=== PATIENT | female | born 1980 | race African-American/Black ===

== ENCOUNTER 2022-10-31 21:42 | Inpatient (IN) | payer MEDICAID, MEDICARE ==
[~2022-10-31] VITALS: Ht 175.3 cm; Wt 85.3 kg
[~2022-10-31 21:42] MED LIST: CARI350T27 PO; LOPE2CAP PO; WARF4TAB72 PO
--- NOTE | 2022-10-31 21:55 | NUR ---
Patient arrived, bib ambulance. Not able to assess mentlastatus, no signs or respiratory distress. Patient sleeping and snoring. MD at bedside assessing pt. All safety precautions followed.
--- NOTE | 2022-10-31 21:55 | NUR ---
DANN MIDLINE IV ESTABLISHED BY MIDLINE RN
[2022-10-31] MEDS ORDERED: IV NS 0.9% 1,000 ML BAG IV ONE (22:00)
[2022-10-31] MEDS ORDERED: NALOXONE PREFILLED SYRINGE 2 MG/2 ML SYRINGE IV ONE (22:00)
--- NOTE | 2022-10-31 22:00 | NUR ---
Blood collected, sent to lab
[2022-10-31] MEDS ORDERED: NALOXONE PREFILLED SYRINGE 2 MG/2 ML SYRINGE ONE (22:16)
--- NOTE | 2022-10-31 22:30 | NUR ---
Wilson catheter in place 16fr.
--- NOTE | 2022-10-31 22:31 | NUR ---
Patietn awake, combative, confused. All safety precautions followed.
[2022-10-31 22:33] LABS: BASOPHILS % (AUTO) 0.4 % (0.0-2.0); EOSINOPHILS % (AUTO) 2.7 % (0.0-6.0); HEMATOCRIT 37 % (33-45); HEMOGLOBIN 11.5 g/dL (11.5-14.8); LYMPHOCYTES # (AUTO) 0.8 K/uL (0.8-4.8); LYMPHOCYTES % (AUTO) 17.6 % (20.0-44.0); MEAN CORPUSCULAR HGB CONC 31 g/dl (31.0-36.0); MEAN CORPUSCULAR VOLUME 85 fL (82-100); MONOCYTES # (AUTO) 0.5 K/uL (0.1-1.30); MONOCYTES % (AUTO) 10.2 % (2.0-12.0); NEUTROPHILS # (AUTO) 3.2 K/uL (1.8-8.9); NEUTROPHILS % (AUTO) 69.1 % (43.0-81.0); PLATELET COUNT (AUTO) 163 K/uL (150-450); RED BLOOD CELL COUNT(AUTO) 4.32 MIL/uL (4.0-5.2); WHITE BLOOD COUNT (AUTO) 4.6 K/uL (4.3-11.0)
--- NOTE | 2022-10-31 22:38 | NUR ---
Only NS 500 ml administered, per MDs request.
[2022-10-31 22:47] LABS: SERUM AMMONIA 12 umol/L (11-32)
[2022-10-31 22:51] LABS: CALCIUM, SERUM 9.2 mg/dL (8.5-10.1); CARBON DIOXIDE 30 mmol/L (21-32); CHLORIDE 95 mmol/L (98-107); CREATININE 5.1 mg/dL (0.6-1.3); GLUCOSE 333 mg/dL (74-106); POTASSIUM 4.4 mmol/L (3.5-5.1); SODIUM SERUM 136 mmol/L (136-145); UREA NITROGEN, BLOOD 25 mg/dL (7-18)
[2022-10-31 22:56] LABS: ALANINE AMINOTRANSFERASE 25 U/L (12-78); ALBUMIN 4.3 g/dL (3.4-5.0); ALCOHOL, BLOOD < 3 mg/dL (0-10); ALKALINE PHOSPHATASE 145 U/L (46-116); ASPARTATE AMINOTRANSFERASE 14 U/L (15-37); BILIRUBIN,DIRECT 0.1 mg/dL (0.0-0.2); BILIRUBIN,TOTAL 0.6 mg/dL (0.2-1.0); TOTAL PROTEIN, SERUM 8.5 g/dL (6.4-8.2)
[2022-10-31] MEDS ORDERED: ONDANSETRON HCL/PF 4 MG/2 ML VIAL ONE (23:19)
--- NOTE | 2022-10-31 23:20 | NUR ---
PT OBSERVED TO HAVE VOMITED X1
--- NOTE | 2022-10-31 23:25 | NUR ---
PT TAKEN TO CT W/ TECH
[2022-10-31] MEDS ORDERED: ONDANSETRON HCL/PF 4 MG/2 ML VIAL IVP ONE (23:30)
[2022-11-01] VITALS (34 sets, daily range): BP systolic 66–145; BP diastolic 26–107; TEMP 96.4–98.2; O2SAT 100
--- NOTE | 2022-11-01 01:11 | NUR ---
CALL SISTER SUDHAKAR RAMOS . PLS CALL FOR UPDATES.
--- NOTE | 2022-11-01 01:20 | NUR ---
PT HAD BOWEL MOVEMENT, PT CLEANED.
--- NOTE | 2022-11-01 06:33 | NUR ---
MOVE SHEET GIVEN TO ADMITTING
--- NOTE | 2022-11-01 06:33 | NUR ---
PT FOR ADMISSION D/T ALTERED MENTAL STATUS, UNSTABLE TO TRANSFER, NEEDS TELE BED. RESTAURANT CREW PERSON MADE AWARE
--- NOTE | 2022-11-01 06:38 | NUR ---
CLINICALS GIVEN TO ADMITTING STAFF
[2022-11-01] MEDS ORDERED: Magnesium 1GM/D5W 100ML PREMIX 100 ML IV STA (06:51)
[2022-11-01] MEDS ORDERED: Magnesium 1GM/D5W 100ML PREMIX 100 ML IV ONE (06:56)
--- NOTE | 2022-11-01 07:10 | NUR ---
RECEIVED PT 42 YRS FEMALE ASLEEPY RESPIRATION SPONT AND EASY NO SOB WATING FOR TELMETRY BED
--- NOTE | 2022-11-01 07:15 | NUR ---
[facility] PAGED AWAITING CALL BACK FORM DR KEARNS
--- NOTE | 2022-11-01 07:20 | NUR ---
PT UNRESPONSIVE WITH PINFULL STIMLY WITH F/C NO URINE OUT PUT
[2022-11-01 07:56] LABS: THYROID STIMULATING HORMONE 1.295 uIU/mL (0.358-3.74)
[2022-11-01 07:57] LABS: MAGNESIUM 2.4 mg/dL (1.8-2.4)
--- NOTE | 2022-11-01 08:23 | NUR ---
ROOM 116-1 , ADMITTING AWARE
--- NOTE | 2022-11-01 08:23 | NUR ---
SPOKE WITH THE SISTER, GAVE UPDATE ABOUT THE STATUS OF THE PATIENT.
--- NOTE | 2022-11-01 08:30 | NUR ---
REPORT GIVEN TO MCKENNA AMAYA
--- NOTE | 2022-11-01 08:54 | NUR ---
MOVED TO INPATIENT ROOM SAFELY PER ACLS PROTOCOL
--- NOTE | 2022-11-01 09:00 | NUR ---
chain person note . Patient is non responsive , sleeping , on room air o2 sat 100 % . has midline on devan , right upper arm av shunt .patient is on HD , last HD was on 10/20/22 , patient has both feet toes amputated and multiple scars. . Wound consult was ordered .bed placed at lowest position , call light within reach will continue to monitor
[2022-11-01] MEDS ORDERED: DEXTROSE 50%-WATER 50 ML DISP.SYRIN IV PRN ×3 (11:00→14:00)
[2022-11-01] MEDS ORDERED: INSULIN REGULAR, HUMAN 100 UNIT/ML 3 ML VIAL SQ PRN ×2 (11:00→14:00)
[2022-11-01] MEDS ORDERED: BLOOD SUGAR DIAGNOSTIC 1 EACH STRIP IN SCH ×2 (11:00→18:00)
--- NOTE | 2022-11-01 12:10 | NUR ---
rn note Patient is non responsive , unable to wake her up ,MD notified. called rapid response, Patient was intubated and transfered to the ICU
[2022-11-01] MEDS ORDERED: IV NS 0.9% 500 ML BAG IV ONE (12:30)
[2022-11-01] MEDS ORDERED: NALOXONE HCL 0.4 MG/ML AMPUL ONE ×2 (12:32→12:37)
--- NOTE | 2022-11-01 12:41 | NUR ---
MACHINE BASTER NOTES 1210 - PATIENT FOUND UNRESPONSIVE DESPITE CHEST RUBS AND SHOULDER TAPPING. RAPID RESPONSE ACTIVATED 1212 - INTERNAL AUDIT SENIOR MANAGER ARRIVED. DR. KEARNS NOTIFIED. 1215 - STAT ABG DONE, BRITNEY PAINTER DNP ONSITE. ACCUCHECK DONE = 338 MG/DL 1220 - 1 L NS BOLUS GIVEN PER DR. KEARNS 1225 - DR. LORI EVANS MD AT BEDSIDE. 1230 - NARCAN ORDERED 1233 - NARCAN 0.4 MG GIVEN X 2 VIALS 1235 - ETOMIDATE 20 MG + SUCCINYL CHOLINE 200 MG GIVEN 1236 - E TUBE INSERTED 7.09/05 LIP 1241 - TO ICU RM 256 INTERNAL AUDIT SENIOR MANAGER PRESENT: GRACE RT, MARCELO RT, DEANGELO RT, SAMIR AUTOMOBILE LOCATOR, RAKESH RN, URSULA RN, SEAN FCO CHARGE NURSE, ASMITA NURSE SPORTS PHYSICIAN, DR. SOM SALGADO, BRITNEY PAINTER DNP, DR. LORI EVANS MD
[2022-11-01 12:52] LABS: ABG BASE EXCESS 2.3 mmol/L; ABG OXYGEN SATURATION 79.1 % (92.0-98.5); ABG PCO2 36.5 mmHg (35.0-45.0); ABG PH 7.468 (7.350-7.450); ABG PO2 41.5 mmHg (75.0-100.0); AaDO2 201.7 mmHg; COHb 1.9 % (0.5-1.5); MetHb 0.3 % (0.0-1.5); O2Hb 77.4 % (94.0-97.0); VENT MODE, BG 5L NC
--- NOTE | 2022-11-01 13:00 | NUR ---
ICU/RN AIR TWISTER WINDER CALLED TO ROOM 116-1./TELE UNIT.PT IS ALOC.V/S STABLE AFEBRILE.ON ROOM AIR ,SAT O2-100%.NOT RESPONSIVE FOR PAIN STIMULATION.LABS REVIEW.PT IS ESRD. ON HD RIGHT UPPER ARM HD FISTULA .ANURIC.LAST HD WAS 10/30/22. LABS REVIEW. AT BEDSIDE.NARCAN 0.8 MG IV GIVEN .NO RESPONSE .PT IS INTUBATED AND TRANSFER TO ICU 257.
--- NOTE | 2022-11-01 13:19 | NUR ---
PIPE RACKER NOTE Patient was transferred to ICU from [facility] for being unresponsive. Patient was intubated upon arrival. desk monitor showed SR HR 69/min. BP 112/99mmHg, SpO2 100% with FiO2 100%. Temp 96. GCS E1VTM1, bilateral pupils 3mm non-reactive to light. In view of the use of paralytics for rapid sequence intubation, would check pupil response again after 1 hour. After transfer, noted that patient had some muscle twitching from all four limbs and upper body. No desaturation was noted. CTB done earlier was negative. Informed Dr. Casey, who ordered initiating propofol infusion. Stat bolus 500mL NS was given. Keep observation and care.
[2022-11-01] MEDS: PROPOFOL 100 ML IV PRN (13:28)
[2022-11-01] MEDS ORDERED: Z GUARD REMEDY 4 OZ OINT TP PRN (13:30)
[2022-11-01] MEDS ORDERED: ACETAMINOPHEN 325 MG TABLET PO PRN (13:30)
[2022-11-01] MEDS ORDERED: ONDANSETRON HCL/PF 4 MG/2 ML VIAL IVP PRN (13:30)
[2022-11-01 14:26] LABS: ABG BASE EXCESS 3.3 mmol/L; ABG OXYGEN SATURATION 99.5 % (92.0-98.5); ABG PCO2 27.3 mmHg (35.0-45.0); ABG PO2 293.8 mmHg (75.0-100.0); AaDO2 391.9 mmHg; COHb 1.2 % (0.5-1.5); MetHb 0.2 % (0.0-1.5); O2Hb 98.1 % (94.0-97.0); PEEP,BG 5 cm H2O; SITE, ABG Left Brachial; VENT MODE, BG AC FIO2 100%; VT, ABG 500 mL
--- NOTE | 2022-11-01 14:26 | NUR ---
Rapid Response called for Pt. Responded to STEEL DIE PRESS SET UP OPERATOR, Pt found obtunded and non-responsive. Intubation performed by Dr. Harvey EVANS MD, used MAC 3 w/ Glydscope, 7.5 ETT placed @ 1226, secured at 25cm @ Lips. Pt was brought to ICU via transport and bagged with BVM. Upon arrival to ICU, Pt was placed on ventilator w/ following settings: AC 18 500 +5 100%.
[2022-11-01] MEDS: NOREPINEPHRINE 32 MG in IV NS 0.9% 218 ML IV PRN (14:42)
[2022-11-01 15:02] LABS: BASOPHILS % (AUTO) 0.3 % (0.0-2.0); EOSINOPHILS % (AUTO) 1.3 % (0.0-6.0); HEMATOCRIT 39 % (33-45); HEMOGLOBIN 11.8 g/dL (11.5-14.8); LYMPHOCYTES # (AUTO) 1.5 K/uL (0.8-4.8); MEAN CORPUSCULAR HGB CONC 30 g/dl (31.0-36.0); MEAN CORPUSCULAR VOLUME 86 fL (82-100); MONOCYTES # (AUTO) 0.6 K/uL (0.1-1.30); MONOCYTES % (AUTO) 4.7 % (2.0-12.0); NEUTROPHILS # (AUTO) 9.5 K/uL (1.8-8.9); NEUTROPHILS % (AUTO) 80.7 % (43.0-81.0); PLATELET COUNT (AUTO) 139 K/uL (150-450); RED BLOOD CELL COUNT(AUTO) 4.54 MIL/uL (4.0-5.2); WHITE BLOOD COUNT (AUTO) 11.7 K/uL (4.3-11.0)
[2022-11-01] MEDS: IV D5/ 0.9% NACL 1,000 ML IV SCH (15:15)
[2022-11-01 15:22] LABS: CALCIUM, SERUM 8.7 mg/dL (8.5-10.1); CREATININE 5.8 mg/dL (0.6-1.3); POTASSIUM 4.6 mmol/L (3.5-5.1)
[2022-11-01] MEDS: INSULIN REGULAR, HUMAN 100 UNIT/ML 3 ML VIAL SQ PRN (15:56)
[2022-11-01] MEDS ORDERED: SUCCINYLCHOLINE CHLORIDE 20 MG/ML VIAL IV ONE (15:56)
[2022-11-01] MEDS ORDERED: ETOMIDATE 2 MG/ML VIAL IV ONE (15:56)
[2022-11-01] MEDS: BLOOD SUGAR DIAGNOSTIC 1 EACH STRIP IN SCH (18:39)
--- NOTE | 2022-11-01 19:42 | NUR ---
RECEIVED PT INTUBATED ON [facility] VENT 7.5 ETT SECURED AT 26CM AT THE LIP. NO RESP DISTRESS NOTED. PT TOLERATING VENT SETTINGS. SX'D SMALL AMT OF THIN WHITE SECRETIONS. VENT ALARMS SET AND AUDIBLE. AMBU BAG AT BEDSIDE. CONTINUE TO MONITOR. Addendum: 11/01/22 at 1944 by LUCERO HASKINS RT Amended: Links added.
--- NOTE | 2022-11-01 19:45 | NUR ---
ICU/MILKER MACHINE WAS ACTIVELY TITRATING LEVO BY WORD PROCESSING SPECIALIST NURSE SEE IV SPREAD SHEET FOR TITRATION. WILL CONTINUE TO MONITOR THIS PT. PT IS SEDATED CURRENTLY WITH LOW DOSE PROPOFOL. ID LAURO CAME ORDERED LABS AND IVPB VANCO, ROCEPHIN, ZYVOX. ALONG WITH BLOOD CULTURAL X2. ALL ORDERD CARRIED OUT ALSO ORDER TO REMOVE ARRIAGA CATH. THIS WAS DONE.
[2022-11-01] MEDS: CEFTRIAXONE 2 G in IV D5W 100 ML IV SCH (21:21)
[2022-11-01] MEDS: ACYCLOVIR IV 500 MG in IV D5W 100 ML IV SCH (22:09)
[2022-11-01 22:14] LABS: BAND % (MANUAL) 2 % (0.0-5.0); BASOPHILS % (MANUAL) 1 % (0.0-2.0); EOSINOPHILS % (MANUAL) 2 % (0-4); LYMPHOCYTES % (MANUAL) 16 % (16-48); MONOCYTES % (MANUAL) 2 % (0-11.0); NEUTROPHILS % (MANUAL) 77 (42-76)
[2022-11-01] MEDS ORDERED: VANCOMYCIN 1 GM in IV D5W 250 ML IV ONE (23:00)
[2022-11-02] VITALS (84 sets, daily range): BP systolic 60–169; BP diastolic 29–104; TEMP 98–99.5; O2SAT 99–100
[2022-11-02] MEDS: BLOOD SUGAR DIAGNOSTIC 1 EACH STRIP IN SCH ×5 (00:10→23:16)
--- NOTE | 2022-11-02 00:10 | NUR ---
ICU/VICE PRESIDENT INVESTOR RELATIONS CONTINUE TO TITRATE DOWN LEVO. SEE IV SPREAD SHEET FOR THIS.
[2022-11-02] MEDS: INSULIN REGULAR, HUMAN 100 UNIT/ML 3 ML VIAL SQ PRN ×5 (00:13→23:19)
[2022-11-02] MEDS ORDERED: LORAZEPAM INJ 2 MG/ML VIAL IV PRN (02:30)
--- NOTE | 2022-11-02 02:30 | NUR ---
ICU/AMMONIUM HYDROXIDE OPERATOR PT HAD BODY JERKING, CALLED ACTIMIZE ARCHITECT FOR ATIVAN. ORDER RECEIVED AND CHARGE NURSE PLACED ORDER. PT HAS SINCE THEN SLOWED THE JERKING DOWN. BUT WILL CONTINUE TO MONITOR THIS PT.
--- NOTE | 2022-11-02 05:00 | NUR ---
ICU/SMALL STOCK FACER PT HAD JERKING MOVEMENTS THROUGHOUT THE NIGHT, SEDATION WAS INCREASED IT SUBSIDED. WILL MONITOR THIS PT.
[2022-11-02 05:25] LABS: BASOPHILS % (AUTO) 0.2 % (0.0-2.0); EOSINOPHILS % (AUTO) 1.2 % (0.0-6.0); HEMATOCRIT 42 % (33-45); HEMOGLOBIN 12.6 g/dL (11.5-14.8); LYMPHOCYTES # (AUTO) 1.6 K/uL (0.8-4.8); LYMPHOCYTES % (AUTO) 13.4 % (20.0-44.0); MEAN CORPUSCULAR HGB CONC 30 g/dl (31.0-36.0); MEAN CORPUSCULAR VOLUME 85 fL (82-100); MONOCYTES # (AUTO) 0.9 K/uL (0.1-1.30); MONOCYTES % (AUTO) 7.2 % (2.0-12.0); NEUTROPHILS # (AUTO) 9.5 K/uL (1.8-8.9); PLATELET COUNT (AUTO) 176 K/uL (150-450); RED BLOOD CELL COUNT(AUTO) 4.91 MIL/uL (4.0-5.2); WHITE BLOOD COUNT (AUTO) 12.2 K/uL (4.3-11.0)
[2022-11-02 05:41] LABS: CALCIUM, SERUM 9.4 mg/dL (8.5-10.1); CREATININE 4.9 mg/dL (0.6-1.3); MAGNESIUM 2.6 mg/dL (1.8-2.4); PHOSPHORUS 3.7 mg/dL (2.5-4.9); POTASSIUM 4.1 mmol/L (3.5-5.1)
[2022-11-02] MEDS: PROPOFOL 100 ML IV PRN ×2 (05:43→16:49)
[2022-11-02 05:52] LABS: THYROID STIMULATING HORMONE 1.403 uIU/mL (0.358-3.74)
[2022-11-02] MEDS: IV D5/ 0.9% NACL 1,000 ML IV SCH ×2 (05:56→18:33)
--- NOTE | 2022-11-02 07:00 | NUR ---
RN NOTES RECEIVED PT ON BED, INTUBATED AND SEDATED, ON PROPOFOL AT 10 MCG/KG/MIN, TOLERATING VENT SETTING WELL, ON LEVO AT .2 MCG/KG/MIN, FOR BP SUPPORT, IVF AT 75CC/HR RUNNING , IV SITE CDI, SR UP x3, CALL LIGHT WITHIN EASY REACH, CONTINUE TO MONITOR
[2022-11-02] MEDS: PANTOPRAZOLE 40 MG TABLET.DR PO SCH (08:01)
--- NOTE | 2022-11-02 09:59 | NUR ---
RN NOTES PT BP GOES UP DURING THE JERKING MOVEMENT AND WHEN PT IS RESTING SBP GOES DOWN 70'S. BP IS VERY LABILE .
--- NOTE | 2022-11-02 15:00 | NUR ---
RN NOTES PT IS SENSITIVE TO LEVO , BP IS LABILE , MANUAL BP DONE, PT IS VERY SENSITIVE TO LEVO AND LEVO TITRATION , DONE SLOWLY
[2022-11-02] MEDS: NOREPINEPHRINE 32 MG in IV NS 0.9% 218 ML IV PRN (15:13)
--- NOTE | 2022-11-02 18:18 | NUR ---
RN NOTES PT REMAINS INTUBATED, SEDATED ON PROPOFOL AT 15 MCG/KG/MIN , OFF LEVO , BP STABLE , ORAL AND ET SUCTIONING DONE PRN , O2 SAT WNL, PT RECEIVED HD ON THIS SHIFT, TOLERATED WELL, CONSENT SIGNED BY PT'S BOTHER FOR LP IN AM , NO DISTESS NOTED, WILL ENDORSE TO MARINE ENGINE MACHINIST APPRENTICE NURSE FOR CONTINUITY OF CARE.
--- NOTE | 2022-11-02 19:45 | NUR ---
ICU/REGISTERED RESPIRATORY TECHNICIAN PT GOT HD TODAY TOOK OFF 2 LITERS, VANCO TROUGH WAS 43. VANCO WAS NOT GIVEN PER PHARMACY PROTOCOL.
[2022-11-02] MEDS: CEFTRIAXONE 2 G in IV D5W 100 ML IV SCH (20:59)
[2022-11-02] MEDS: ACYCLOVIR IV 500 MG in IV D5W 100 ML IV SCH (21:36)
[2022-11-03] VITALS (26 sets, daily range): BP systolic 97–166; BP diastolic 57–102; TEMP 98–98.4; O2SAT 100
[2022-11-03] MEDS: PROPOFOL 100 ML IV PRN ×2 (03:04→23:47)
[2022-11-03 05:57] LABS: ALBUMIN 3.2 g/dL (3.4-5.0); BILIRUBIN,TOTAL 0.9 mg/dL (0.2-1.0); CALCIUM, SERUM 9.8 mg/dL (8.5-10.1); CREATININE 4.7 mg/dL (0.6-1.3); MAGNESIUM 2.5 mg/dL (1.8-2.4); PHOSPHORUS 4.9 mg/dL (2.5-4.9); POTASSIUM 4.8 mmol/L (3.5-5.1); TOTAL PROTEIN, SERUM 8.1 g/dL (6.4-8.2)
[2022-11-03] MEDS: BLOOD SUGAR DIAGNOSTIC 1 EACH STRIP IN SCH ×4 (06:19→23:30)
[2022-11-03] MEDS: IV D5/ 0.9% NACL 1,000 ML IV SCH ×2 (06:19→21:01)
[2022-11-03] MEDS: INSULIN REGULAR, HUMAN 100 UNIT/ML 3 ML VIAL SQ PRN ×4 (06:25→23:34)
[2022-11-03] MEDS: PANTOPRAZOLE 40 MG TABLET.DR PO SCH (07:48)
[2022-11-03 08:59] LABS: BASOPHILS % (AUTO) 0.3 % (0.0-2.0); EOSINOPHILS % (AUTO) 1.5 % (0.0-6.0); HEMATOCRIT 44 % (33-45); HEMOGLOBIN 12.9 g/dL (11.5-14.8); LYMPHOCYTES # (AUTO) 1.4 K/uL (0.8-4.8); LYMPHOCYTES % (AUTO) 15.2 % (20.0-44.0); MEAN CORPUSCULAR HGB CONC 29 g/dl (31.0-36.0); MEAN CORPUSCULAR VOLUME 90 fL (82-100); MONOCYTES # (AUTO) 1.1 K/uL (0.1-1.30); MONOCYTES % (AUTO) 12.4 % (2.0-12.0); NEUTROPHILS # (AUTO) 6.5 K/uL (1.8-8.9); NEUTROPHILS % (AUTO) 70.6 % (43.0-81.0); PLATELET COUNT (AUTO) 135 K/uL (150-450); RED BLOOD CELL COUNT(AUTO) 4.92 MIL/uL (4.0-5.2); WHITE BLOOD COUNT (AUTO) 9.3 K/uL (4.3-11.0)
[2022-11-03] MEDS ORDERED: LEVETIRACETAM (500MG) 2,000 MG in IV NS 0.9% 100 ML IV ONE (12:30)
--- NOTE | 2022-11-03 20:10 | NUR ---
ICU/FOOD SELECTOR CT RESULTS ARE NEGATIVE, CHARGE NURSE MADE AWARE. TOMORROW LUMBAR PUNTURE AND EEG.
--- NOTE | 2022-11-03 20:20 | NUR ---
ICU/MULTIFOCAL BUTTON INSPECTOR PT GOT HD TODAY TOOK OFF 1.2 LITERS, VANCO TROUGH WAS 28. VANCO WAS NOT GIVEN PER PHARMACY PROTOCOL.
--- NOTE | 2022-11-03 20:34 | NUR ---
ICU/WHITE LEAD FILTERER EEG ORDERED ON 11/03/22@11AM WAS ORDERED STAT. WASN'T DONE POSSIBLE DUE TO PT HAVING HEAD CT. MADE HOUSE SUP. AND CHARGE NURSE AWARE THAT PT STILL NEEDS TO HAVE THIS DONE, PER MD TRIPP ORDERS.
[2022-11-03] MEDS: CEFTRIAXONE 2 G in IV D5W 100 ML IV SCH (20:53)
[2022-11-03] MEDS ORDERED: LEVETIRACETAM (500MG) 1,000 MG in IV NS 0.9% 100 ML IV SCH (21:00)
[2022-11-03] MEDS: ACYCLOVIR IV 500 MG in IV D5W 100 ML IV SCH (21:49)
[2022-11-04] VITALS (24 sets, daily range): BP systolic 113–162; BP diastolic 85–113; TEMP 96.6–98.2; O2SAT 100
--- NOTE | 2022-11-04 01:00 | NUR ---
ICU/PRODUCTION ILLUSTRATOR PT AGITATED INCREASED SEDATION BY FLOORLEADER NURSE . WILL MONITOR
[2022-11-04] MEDS: BLOOD SUGAR DIAGNOSTIC 1 EACH STRIP IN SCH ×3 (05:59→19:38)
[2022-11-04] MEDS: INSULIN REGULAR, HUMAN 100 UNIT/ML 3 ML VIAL SQ PRN ×2 (06:00→19:36)
--- NOTE | 2022-11-04 07:41 | NUR ---
WOUND CARE CONSULT: PT PRESENTS WITH SACRAL SCARRING, MULTIPLE SCARS ON LOWER LEGS WELL TRANSMETATARSAL AMPUTATION SCARS, RT HEEL DRY WOUND AND LEFT HEEL SCARRING, PRESENT ON ADMISSION. DR ANGEL CALLED FOR DPM CONSULT. DISCUSSED SKIN PROTECTION WITH NURSING STAFF. PT IS CURRENTLY INTUBATED. FIRST STEP LOW AIRLOSS MATTRESS IS ON ORDER. MD IN AGREEMENT WITH PLAN OF CARE. Addendum: 11/04/22 at 0745 by WARNER CALI WNDNU Amended: Links added.
--- NOTE | 2022-11-04 07:50 | NUR ---
RN NOTES SPOKE TO DR. TRIPP. THE DOCTOR IS ASKING TO PUSH FOR LUMBAR PUNCTURE FOR PATIENT TODAY. CALLED RADIOLOGY; PER RADIOLOGY, THEY ARE SHORT-STAFFED AND AN LP REQUIRES SOME PLANNING, AND MAY NOT BE POSSIBLE TO BE COMPLETED TODAY.
--- NOTE | 2022-11-04 07:52 | NUR ---
RT PATIENT REC'D ORALLY INTUBATED ON [facility] VENT WITH ORDERED SETTINGS ZINA WELL. ETT SECURE AND PATENT. VENT ALARMS CHECKED + AUDIBLE. KIRBY TEIXEIRA AT [facility]. VENT PLUGGED INTO RED OUTLET. Addendum: 11/04/22 at 1057 by MILLY PEÑALOZA RT Amended: Links added.
[2022-11-04] MEDS: PANTOPRAZOLE 40 MG TABLET.DR PO SCH (08:26)
[2022-11-04 08:43] LABS: BASOPHILS % (AUTO) 0.3 % (0.0-2.0); EOSINOPHILS % (AUTO) 1.8 % (0.0-6.0); HEMATOCRIT 40 % (33-45); HEMOGLOBIN 12.4 g/dL (11.5-14.8); LYMPHOCYTES # (AUTO) 1.2 K/uL (0.8-4.8); LYMPHOCYTES % (AUTO) 17.5 % (20.0-44.0); MEAN CORPUSCULAR HGB CONC 31 g/dl (31.0-36.0); MEAN CORPUSCULAR VOLUME 86 fL (82-100); MONOCYTES # (AUTO) 0.9 K/uL (0.1-1.30); MONOCYTES % (AUTO) 12.9 % (2.0-12.0); NEUTROPHILS # (AUTO) 4.7 K/uL (1.8-8.9); NEUTROPHILS % (AUTO) 67.5 % (43.0-81.0); PLATELET COUNT (AUTO) 140 K/uL (150-450); RED BLOOD CELL COUNT(AUTO) 4.71 MIL/uL (4.0-5.2); WHITE BLOOD COUNT (AUTO) 6.9 K/uL (4.3-11.0)
[2022-11-04 09:00] LABS: ALBUMIN 3.1 g/dL (3.4-5.0); BILIRUBIN,TOTAL 0.6 mg/dL (0.2-1.0); CALCIUM, SERUM 9.9 mg/dL (8.5-10.1); MAGNESIUM 2.4 mg/dL (1.8-2.4); PHOSPHORUS 4.4 mg/dL (2.5-4.9); TOTAL PROTEIN, SERUM 8.2 g/dL (6.4-8.2)
[2022-11-04] MEDS ORDERED: LACOSAMIDE 200 MG in IV NS 0.9% 100 ML IV ONE (09:00)
[2022-11-04] MEDS: IV D5/ 0.9% NACL 1,000 ML IV PRN (12:37)
--- NOTE | 2022-11-04 13:02 | NUR ---
RN NOTES HD DONE FOR PATIENT TODAY W/2L OUTPUT. LATEST VANCO LEVEL AT 27; NOTIFIED PHARMACY, AND PHARMACIST STATES TO HOLD AT THIST TIME.
--- NOTE | 2022-11-04 19:20 | NUR ---
RN OPENING NOTES RECEIVED PATIENT ON BED, SEDATED, ORALLY INTUBATED SIZE 7.5 AND 21 CM BY THE LIP, WITH VENT SETTING AC- 18, TV- 500, FIO2- 30%, PEEP-5. RESPIRATORY EVEN AND UNLABORED, NO SOB NOTED. AFEBRILE. NO S/S OF DISTRESS NOTED. NOTED WITH DANN MIDLINE # 18, PATENT INTACT, FLUSHED WITH NS, NO S/S OF INFILTRATION NOTED. RUNNING WITH D5 NS @ 75 ML/HR. NOTED WITH CARISSA FISTULA FOR HD, NO ACTIVE BLEEDING NOTED AT THIS TIME. ALL SAFETY PRECAUTION PROVIDED. BED IN LOWEST POSITION LOCKED. CALL LIGHT WITH IN REACH.
[2022-11-04] MEDS: PROPOFOL 100 ML IV PRN (19:42)
--- NOTE | 2022-11-04 19:56 | NUR ---
RN NOTES PATIENT LOOKS COMFORTABLE, NO VISUAL SIGNS OF PAIN AT THIS TIME, ALL DUE MEDS GIVEN. PATIENT STILL ON DIPRIVAN AT 10 MCG/KG/HR AND ON BILATERAL RESTRAINTS FOR SAFETY CONCERNS. REPORT GIVEN TO WENCESLAO AMAYA FOR CONTINUATION OF CARE.
[2022-11-04] MEDS ORDERED: LACOSAMIDE 100 MG in IV NS 0.9% 50 ML IV SCH (21:00)
[2022-11-04] MEDS: CEFTRIAXONE 2 G in IV D5W 100 ML IV SCH (21:35)
[2022-11-04] MEDS: ACYCLOVIR IV 500 MG in IV D5W 100 ML IV SCH (22:22)
[2022-11-05] VITALS (24 sets, daily range): BP systolic 107–167; BP diastolic 58–102; TEMP 97.4–98.7; O2SAT 98–100
[2022-11-05] MEDS: BLOOD SUGAR DIAGNOSTIC 1 EACH STRIP IN SCH ×5 (00:51→23:51)
[2022-11-05] MEDS: INSULIN REGULAR, HUMAN 100 UNIT/ML 3 ML VIAL SQ PRN ×5 (01:13→23:51)
[2022-11-05] MEDS: IV D5/ 0.9% NACL 1,000 ML IV PRN ×2 (03:25→16:33)
[2022-11-05 04:56] LABS: BASOPHILS % (AUTO) 0.5 % (0.0-2.0); EOSINOPHILS % (AUTO) 2.3 % (0.0-6.0); HEMATOCRIT 36 % (33-45); HEMOGLOBIN 11.1 g/dL (11.5-14.8); LYMPHOCYTES # (AUTO) 1.3 K/uL (0.8-4.8); LYMPHOCYTES % (AUTO) 23.9 % (20.0-44.0); MEAN CORPUSCULAR HGB CONC 31 g/dl (31.0-36.0); MEAN CORPUSCULAR VOLUME 85 fL (82-100); MONOCYTES # (AUTO) 0.6 K/uL (0.1-1.30); MONOCYTES % (AUTO) 10.9 % (2.0-12.0); NEUTROPHILS # (AUTO) 3.3 K/uL (1.8-8.9); NEUTROPHILS % (AUTO) 62.4 % (43.0-81.0); PLATELET COUNT (AUTO) 153 K/uL (150-450); RED BLOOD CELL COUNT(AUTO) 4.24 MIL/uL (4.0-5.2); WHITE BLOOD COUNT (AUTO) 5.3 K/uL (4.3-11.0)
[2022-11-05 05:23] LABS: CALCIUM, SERUM 9.8 mg/dL (8.5-10.1); CREATININE 4.8 mg/dL (0.6-1.3); POTASSIUM 3.9 mmol/L (3.5-5.1)
[2022-11-05 05:24] LABS: ALBUMIN 2.9 g/dL (3.4-5.0); BILIRUBIN,TOTAL 0.5 mg/dL (0.2-1.0); MAGNESIUM 2.2 mg/dL (1.8-2.4); PHOSPHORUS 4.2 mg/dL (2.5-4.9); TOTAL PROTEIN, SERUM 7.8 g/dL (6.4-8.2)
--- NOTE | 2022-11-05 08:07 | NUR ---
RT PATIENT REC'D ORALLY INTUBATED ON [facility] VENT WITH ORDERED SETTINGS ZINA WELL. ETT SECURE AND PATENT. VENT ALARMS CHECKED + AUDIBLE. KIRBY TEIXEIRA AT [facility]. VENT PLUGGED INTO RED OUTLET. Addendum: 11/05/22 at 1245 by MILLY PEÑALOZA RT Amended: Links added.
--- NOTE | 2022-11-05 08:10 | NUR ---
RN NOTES SPOKE TO DR. TRIPP, RECEIVED VERBAL ORDERS TO INCREASE VIMPAT FROM 100 MG Q12H TO 200 MG Q12H.
[2022-11-05] MEDS: PANTOPRAZOLE 40 MG TABLET.DR PO SCH (09:00)
[2022-11-05] MEDS: LACOSAMIDE 200 MG in IV NS 0.9% 100 ML IV SCH ×2 (09:05→21:15)
[2022-11-05] MEDS ORDERED: NOREPINEPHRINE 8 MG in IV NS 0.9% 250ML IV PRN (10:30)
--- NOTE | 2022-11-05 13:30 | NUR ---
RN NOTES HD DONE TODAY FOR PATIENT. 1L OUTPUT. HELD VANCO DOSE TODAY'S VANCO THROUGH IS AT 23.
--- NOTE | 2022-11-05 14:00 | NUR ---
RN NOTES UNABLE TO PERFORM LP THE CT MACHINE FOR THE LP IS CURRENTLY NOT WORKING. RADIOLOGY WILL CALL BACK ONCE IT'S FIXED.
[2022-11-05] MEDS: PROPOFOL 100 ML IV PRN ×2 (14:29→21:16)
--- NOTE | 2022-11-05 16:30 | NUR ---
RN NOTES CALLED RADIOLOGY AND SPOKE TO MASOUD WHO STATED THAT THE TECHICIAN IS WORKING TO FIX THE MACHINE BUT WILL NOT BE ABLE TO FIX IN TIME BEFORE THE RADIOLOGIST LEAVES. WILL MOST LIKELY PERFORM THE PROCEDURE TOMORROW MORNING INSTEAD.
--- NOTE | 2022-11-05 19:19 | NUR ---
RN CLOSING NOTES PATIENT IS COMFORTABLE, NO VISUAL SIGNS OF PAIN. PATIENT ON DIPRIVAN AT 20 MCG AT THIS. PATIENT FAILED SEDATION VACATION THIS MORNING. REPORT GIVEN TO CHRISTIANO AMAYA FOR CONTINUATION OF CARE.
[2022-11-05] MEDS: CEFTRIAXONE 2 G in IV D5W 100 ML IV SCH (21:15)
[2022-11-05] MEDS: ACYCLOVIR IV 500 MG in IV D5W 100 ML IV SCH (22:37)
[2022-11-06] VITALS (24 sets, daily range): BP systolic 106–165; BP diastolic 64–102; TEMP 98–98.5; O2SAT 97–100
[2022-11-06] MEDS: PROPOFOL 100 ML IV PRN ×3 (03:11→17:18)
[2022-11-06] MEDS: IV D5/ 0.9% NACL 1,000 ML IV PRN ×2 (04:48→17:20)
[2022-11-06] MEDS: BLOOD SUGAR DIAGNOSTIC 1 EACH STRIP IN SCH ×3 (05:49→17:05)
[2022-11-06] MEDS: INSULIN REGULAR, HUMAN 100 UNIT/ML 3 ML VIAL SQ PRN ×2 (05:51→17:45)
[2022-11-06 07:21] LABS: BASOPHILS % (AUTO) 0.6 % (0.0-2.0); EOSINOPHILS % (AUTO) 2.8 % (0.0-6.0); HEMATOCRIT 34 % (33-45); HEMOGLOBIN 10.6 g/dL (11.5-14.8); LYMPHOCYTES # (AUTO) 1.5 K/uL (0.8-4.8); LYMPHOCYTES % (AUTO) 25.1 % (20.0-44.0); MEAN CORPUSCULAR HGB CONC 31 g/dl (31.0-36.0); MEAN CORPUSCULAR VOLUME 85 fL (82-100); MONOCYTES # (AUTO) 0.7 K/uL (0.1-1.30); MONOCYTES % (AUTO) 11.9 % (2.0-12.0); NEUTROPHILS # (AUTO) 3.4 K/uL (1.8-8.9); NEUTROPHILS % (AUTO) 59.6 % (43.0-81.0); PLATELET COUNT (AUTO) 144 K/uL (150-450); RED BLOOD CELL COUNT(AUTO) 4.05 MIL/uL (4.0-5.2); WHITE BLOOD COUNT (AUTO) 5.8 K/uL (4.3-11.0)
--- NOTE | 2022-11-06 07:30 | NUR ---
CERAMIC TILE SETTER OPENING NOTES RECEIVED REPORT FROM CHRISTIANO AMAYA. RECEIVED PATIENT ON BED, SEDATED, ORALLY INTUBATED SIZE 7.5 AND 21 CM BY THE LIP, WITH VENT SETTING ORDERED. RESPIRATORY EVEN AND UNLABORED, NO SOB NOTED. AFEBRILE. NO S/S OF DISTRESS NOTED. NOTED WITH DANN MIDLINE # 18, PATENT INTACT, FLUSHED WITH NS, NO S/S OF INFILTRATION NOTED. RUNNING WITH D5 NS @ 75 ML/HR AND PROPOFOL AT 30MCG/MIN. NOTED WITH CARISSA FISTULA FOR HD, NO ACTIVE BLEEDING NOTED AT THIS TIME. ALL SAFETY PRECAUTION PROVIDED. BED IN LOWEST POSITION LOCKED. CALL LIGHT WITH IN REACH. WILL CONTINUE PLAN OF CARE.
[2022-11-06 07:43] LABS: CALCIUM, SERUM 9.4 mg/dL (8.5-10.1); CREATININE 4.4 mg/dL (0.6-1.3); POTASSIUM 4.2 mmol/L (3.5-5.1)
--- NOTE | 2022-11-06 08:00 | NUR ---
PATIENT ON SEDATION VACATION, NO AGITATION NOTED. RESPIRATION EVEN AND UNLABORED, NOT IN ANY DISTRESS.
[2022-11-06] MEDS: LACOSAMIDE 200 MG in IV NS 0.9% 100 ML IV SCH ×2 (08:37→21:11)
[2022-11-06] MEDS: PANTOPRAZOLE 40 MG VIAL IV SCH (09:15)
--- NOTE | 2022-11-06 10:00 | NUR ---
MENA STEWART DNP AT BEDSIDE, PER PAT DNP TURN OFF THE PROPOFOL, NOTED AND CARRIED OUT.
--- NOTE | 2022-11-06 10:15 | NUR ---
RECEIVED A CALL FROM CT THAT THEY WILL DO THE LUMBAR TAP AT 1300, INFORMED CHARGE NURSE TIFFANIE
--- NOTE | 2022-11-06 10:45 | NUR ---
NOTED PATIENT IS AGITATED, INFORMED MENA STEWART DNP, WITH ORDER TO RESTART ON SEDATION, NOTED AND CARRIED OUT. RESTARTED PROPOFOL AT 5MCG/KG/HR.
[2022-11-06 12:16] LABS: ABG BASE EXCESS -2.6 mmol/L; ABG PCO2 23.1 mmHg (35.0-45.0); ABG PH 7.526 (7.350-7.450); ABG PO2 89.2 mmHg (75.0-100.0); AaDO2 97.6 mmHg; COHb 0.9 % (0.5-1.5); MetHb 0.1 % (0.0-1.5); PEEP,BG 5 cm H2O; SITE, ABG Left Radial; VT, ABG 500 mL
--- NOTE | 2022-11-06 13:00 | NUR ---
PATIENT BROUGHT TO CT DEPARTMENT FOR LUMBAR TAP, VIA ACLS ACCOMPANIED BY RT LOU
--- NOTE | 2022-11-06 14:30 | NUR ---
LUMBAR PUNCTURE UNSUCCESSFUL, PATIENT ET TUBE KEPT DISCONNECTING DUE TO PATIENT COUGHING AND SECRETIONS AND PATIENT IS ON PRONE POSITION. INFORMED DR. PALMER
--- NOTE | 2022-11-06 16:30 | NUR ---
DR. TRIPP AT THE BEDSIDE INFORMED THAT PATIENT LUMBAR PUNCTURE WAS UNSUCCESSFUL.
--- NOTE | 2022-11-06 17:30 | NUR ---
HD STARTED AT THIS MOMENT.
--- NOTE | 2022-11-06 17:55 | NUR ---
INFORMED DR. PALMER THAT PATIENT DON'T HAVE ANY FEEDING AT THIS MOMENT, PER DR. PALMER START THE PATIENT PER DIETARY RECOMMENDATION. NOTED DIETARY RECOMMENDATION NEPHRO 1.8 START ON 20ML THEN INCREASE 10ML Q 6 HOUR WHEN TOLERATING GOAL IS 50ML/HR X 24 HOURS, NOTED AND CARRIED OUT, INFORMED CHRISTIANO AMAYA.
--- NOTE | 2022-11-06 18:27 | NUR ---
SEISMOGRAPH COMPUTER CLOSING NOTES PATIENT ON BED, SEDATED, ORALLY INTUBATED SIZE 7.5 AND 26 CM BY THE LIP, WITH VENT SETTING ORDERED. RESPIRATORY EVEN AND UNLABORED, NO SOB NOTED. AFEBRILE. NO S/S OF DISTRESS NOTED. NOTED WITH DANN MIDLINE # 18, PATENT INTACT, FLUSHED WITH NS, NO S/S OF INFILTRATION NOTED. RUNNING WITH D5 NS @ 75 ML/HR AND PROPOFOL AT 10MCG/MIN. NOTED WITH CARISSA FISTULA FOR HD, POSITIVE FOR BRUIT AND THRILL, NO ACTIVE BLEEDING NOTED AT THIS TIME. ALL SAFETY PRECAUTION PROVIDED. BED IN LOWEST POSITION LOCKED. CALL LIGHT WITH IN REACH. ENDORSED TO CHRISTIANO AMAYA FOR SCOTTIE. Addendum: 11/06/22 at 1845 by WILMA VANG RN WITH BILATERAL WRIST RESTRAINTS ON, CHECK FOR SKIN AND CIRCULATION.
--- NOTE | 2022-11-06 18:35 | NUR ---
AV FISTULA ISSUES DURING HD PER HD NURSE, INFORMED DR. GRAY. 975ML NET WAS REMOVED FROM HD.
[2022-11-06] MEDS: VANCOMYCIN POST DIALYSIS 500MG IV PRN ×2 (18:36)
[2022-11-06] MEDS ORDERED: ZINC220C6 PO (18:41)
[2022-11-06] MEDS ORDERED: WARF4TAB72 PO (18:41)
[2022-11-06] MEDS ORDERED: POLY17PO4 PO (18:41)
[2022-11-06] MEDS ORDERED: BETH10TA4 PO (18:41)
[2022-11-06] MEDS ORDERED: SITA50TA PO (18:41)
[2022-11-06] MEDS ORDERED: DEXT-164 PO (18:41)
[2022-11-06] MEDS ORDERED: ALPR1TAB2 PO (18:41)
[2022-11-06] MEDS ORDERED: PANT40TA2 PO (18:41)
[2022-11-06] MEDS ORDERED: AMOX1TAB15 PO (18:41)
[2022-11-06] MEDS ORDERED: CYCL5TAB PO (18:41)
[2022-11-06] MEDS ORDERED: OXYC10TA49 PO (18:41)
[2022-11-06] MEDS ORDERED: DOXY-226 PO (18:41)
[2022-11-06] MEDS ORDERED: DOCU100C36 PO (18:41)
[2022-11-06] MEDS ORDERED: ONDA4TAB5 PO (18:41)
[2022-11-06] MEDS ORDERED: ZOLP10TA2 PO (18:41)
[2022-11-06] MEDS ORDERED: NALO4SPR NAS (18:41)
[2022-11-06] MEDS ORDERED: SEVE800T8 PO (18:41)
[2022-11-06] MEDS ORDERED: INSU100V7 SQ (18:41)
[2022-11-06] MEDS ORDERED: CYAN-51 PO (18:41)
[2022-11-06] MEDS ORDERED: ATOR10TA PO (18:41)
[2022-11-06] MEDS ORDERED: INSU100I28 SQ (18:41)
[2022-11-06] MEDS ORDERED: CHOL200059 PO (18:41)
[2022-11-06] MEDS ORDERED: CLOP75TA15 PO (18:41)
[2022-11-06] MEDS ORDERED: CARI350T27 PO (18:41)
[2022-11-06] MEDS ORDERED: ASPI-1169 PO (18:41)
[2022-11-06] MEDS ORDERED: FOLI0.8T2 PO (18:41)
[2022-11-06] MEDS ORDERED: DIPH50CA4 PO (18:41)
[2022-11-06] MEDS ORDERED: CINA30TA2 PO (18:41)
[2022-11-06] MEDS ORDERED: BLOO-668 IN (18:41)
[2022-11-06] MEDS ORDERED: PREG50CA PO (18:41)
[2022-11-06] MEDS ORDERED: OXYC5TAB3 PO (18:41)
[2022-11-06] MEDS ORDERED: FLUTICASONE PROP BNOSTRILS (18:41)
[2022-11-06] MEDS ORDERED: LOPE2CAP PO (18:41)
[2022-11-06] MEDS ORDERED: SENN-261 PO (18:41)
[2022-11-06] MEDS ORDERED: MIDO10TA PO (18:41)
--- NOTE | 2022-11-06 18:43 | NUR ---
PRN VANCO GIVEN POST DIALYSIS.
[2022-11-06] MEDS ORDERED: NEPRO 1,000 ML BOTTLE GT PRN (19:00)
--- NOTE | 2022-11-06 19:59 | NUR ---
RCVD PT ORALLY INTUBATED W 7.5 ETT SECURED @ 26CM LIP LINE VIA ANCHOR FAST . PT IS ON VENT WITH THE SETTINGS OF AC 18, VT 500, FIO2 30%, PEEP 5. SX DONE . VENT PLUGGED INTO RED OUTLET, VENT ALARMS ON AND AUDIBLE . AMBU BAG@ BEDSIDE. NO RESPIRATORY DISTRESS NOTED AT THIS TIME.
[2022-11-06] MEDS: CEFTRIAXONE 2 G in IV D5W 100 ML IV SCH (20:42)
[2022-11-06] MEDS: ACYCLOVIR IV 500 MG in IV D5W 100 ML IV SCH (22:00)
[2022-11-07] VITALS (24 sets, daily range): BP systolic 81–170; BP diastolic 45–98; TEMP 98–98.1; O2SAT 98–100
[2022-11-07] MEDS: BLOOD SUGAR DIAGNOSTIC 1 EACH STRIP IN SCH ×4 (00:14→17:32)
[2022-11-07] MEDS: INSULIN REGULAR, HUMAN 100 UNIT/ML 3 ML VIAL SQ PRN ×4 (00:16→17:32)
[2022-11-07] MEDS: PROPOFOL 100 ML IV PRN ×3 (01:13→06:18)
[2022-11-07 04:19] LABS: BASOPHILS % (AUTO) 0.4 % (0.0-2.0); EOSINOPHILS % (AUTO) 2.5 % (0.0-6.0); HEMATOCRIT 34 % (33-45); HEMOGLOBIN 10.7 g/dL (11.5-14.8); LYMPHOCYTES # (AUTO) 1.8 K/uL (0.8-4.8); LYMPHOCYTES % (AUTO) 23.7 % (20.0-44.0); MEAN CORPUSCULAR HGB CONC 31 g/dl (31.0-36.0); MEAN CORPUSCULAR VOLUME 86 fL (82-100); MONOCYTES % (AUTO) 12.7 % (2.0-12.0); NEUTROPHILS # (AUTO) 4.7 K/uL (1.8-8.9); NEUTROPHILS % (AUTO) 60.7 % (43.0-81.0); PLATELET COUNT (AUTO) 177 K/uL (150-450); RED BLOOD CELL COUNT(AUTO) 3.98 MIL/uL (4.0-5.2); WHITE BLOOD COUNT (AUTO) 7.7 K/uL (4.3-11.0)
[2022-11-07 04:41] LABS: CALCIUM, SERUM 9.3 mg/dL (8.5-10.1); MAGNESIUM 2.2 mg/dL (1.8-2.4); PHOSPHORUS 4.6 mg/dL (2.5-4.9); POTASSIUM 3.5 mmol/L (3.5-5.1)
--- NOTE | 2022-11-07 05:30 | NUR ---
INFORMATION SENT:FACESHEET,24 HRS REPORT,DC PLANNING,PROGRESS NOTES-11/06,PSF,CONSULTATION INSURANCE NAME:ADEOLA BERNSTEIN/JUAN/VERO ID# AUTH# [id number] FAX NO:[phone] NO OF PAGES:34 FAX SENT BY:HAWA
[2022-11-07] MEDS: IV D5/ 0.9% NACL 1,000 ML IV PRN ×2 (05:36→19:08)
--- NOTE | 2022-11-07 07:20 | NUR ---
ICU OPEN RN NOTE: SEDATED. ORALLY INTUBATED W 7.5 ETT SECURED @ 26CM LIP LINE VIA ANCHOR FAST, NEPRO FORMULA RUNNING AT 30ML/HR. PT IS ON VENT WITH THE SETTINGS OF AC 18, VT 500, FIO2 30%, PEEP 5. SX DONE . VENT PLUGGED INTO RED OUTLET, VENT ALARMS ON AND AUDIBLE . AMBU BAG@ BEDSIDE. NO RESPIRATORY DISTRESS NOTED AT THIS TIME. INSIDE SALES ADMINISTRATOR SINUS [id number]. LEFT UPPER ARM MIDLINE PATENT WITH IVF OF D5NS AT 75 ML/HR, PROPOFOL 25MCG/KG/MIN. HOB ELEVATED. ASPIRATION PRECAUTIONS MAINTAINED. BILATERAL HALF SIDE RAILS UP X2. BED IN LOW POSITION, LOCKED, EXIT ALARM ON. CALL LIGHT IN REACH.
[2022-11-07] MEDS: PANTOPRAZOLE 40 MG VIAL IV SCH (08:02)
--- NOTE | 2022-11-07 09:15 | NUR ---
SEDATED. SEDATION VACATION. PROPOFOL HELD. SAFETY PRECAUTIONS MAINTAINED. RADHA GONZALES , AND ARAVIND AT [phone]..
[2022-11-07] MEDS: LACOSAMIDE 200 MG in IV NS 0.9% 100 ML IV SCH ×2 (09:30→21:10)
--- NOTE | 2022-11-07 10:22 | NUR ---
AT BEDSIDE ASSESSED PATIENT AND SPOKE TO RADHA GONZALES AND ARAVIND REGARDING PATIENT CONDITION AND PLAN OF CARE. SAFETY PRECAUTIONS MAINTAINED.
--- NOTE | 2022-11-07 11:35 | NUR ---
LUCILLE HAMILTON NEUROLOGIST RETAIL ACCOUNT MANAGER HERE, SPOKE TO RADHA GONZALES AND ARAVIND REGARDING RESIDENT CONDITION AND PLAN OF CARE. PATIENT GAGGING AND MOVING MILD AGITATED, PER LUCILLE RETAIL ACCOUNT MANAGER TO PUT HER ON PROPOFOL 20MCG/KG/MIN AND STARTED. KEPT CLEAN AND COMFORTABLE.
--- NOTE | 2022-11-07 12:10 | NUR ---
MENA STEWART HERE ASSESSED PATIENT WITH EPISODE OF BP 81/38 43 MAP TO STOP PROPOFOL AT THIS TIME. SAFETY PRECAUTIONS MAINTAINED.
[2022-11-07] MEDS: PRECEDEX 400 MCG/100 ML BOTTLE 100 ML IV PRN (13:29)
--- NOTE | 2022-11-07 16:00 | NUR ---
Ett-tube pulled out 1 cm to 25cm at lip. per Dr Randolph
--- NOTE | 2022-11-07 16:10 | NUR ---
RN NOTES REPORT RECEIVED FOR CONTINUITY OF CARE . PT IS SEDATED AND INTUBATED, CONTINUE TO MONITOR .
--- NOTE | 2022-11-07 18:49 | NUR ---
RN NOTES PT REMAINS INTUBATED AND SEDATED, NO SIGNIFICANT CHANGES NOTED ON THIS SHIFT, WILL ENDORSE TO BRIM MOLDER NURSE FOR CONTINUITY OF CARE
--- NOTE | 2022-11-07 20:14 | NUR ---
RECEIVED PT INTUBATED ON VENT 7.5 ETT SECURED AT 25CM AT THE LIP. SX'D SMALL AMT OF THICK YELLOW SECRETIONS. VENT ALARMS SET AND AUDIBLE. AMBU BAG AT BEDSIDE. CONTINUE TO MONITOR. Addendum: 11/07/22 at 2016 by LUCERO HASKINS RT Amended: Links added.
[2022-11-07] MEDS: CEFTRIAXONE 2 G in IV D5W 100 ML IV SCH (20:30)
[2022-11-07] MEDS: ACYCLOVIR IV 500 MG in IV D5W 100 ML IV SCH (22:00)
[2022-11-08] VITALS (33 sets, daily range): BP systolic 45–177; BP diastolic 23–110; TEMP 98–99; O2SAT 100
[2022-11-08] MEDS: BLOOD SUGAR DIAGNOSTIC 1 EACH STRIP IN SCH ×4 (01:28→18:50)
[2022-11-08] MEDS: INSULIN REGULAR, HUMAN 100 UNIT/ML 3 ML VIAL SQ PRN ×3 (01:35→18:51)
[2022-11-08 04:35] LABS: BASOPHILS % (AUTO) 0.3 % (0.0-2.0); EOSINOPHILS % (AUTO) 1.3 % (0.0-6.0); HEMATOCRIT 31 % (33-45); HEMOGLOBIN 9.6 g/dL (11.5-14.8); LYMPHOCYTES # (AUTO) 1.1 K/uL (0.8-4.8); LYMPHOCYTES % (AUTO) 15.8 % (20.0-44.0); MEAN CORPUSCULAR HGB CONC 31 g/dl (31.0-36.0); MEAN CORPUSCULAR VOLUME 85 fL (82-100); MONOCYTES # (AUTO) 0.8 K/uL (0.1-1.30); MONOCYTES % (AUTO) 12.6 % (2.0-12.0); NEUTROPHILS # (AUTO) 4.7 K/uL (1.8-8.9); PLATELET COUNT (AUTO) 159 K/uL (150-450); RED BLOOD CELL COUNT(AUTO) 3.66 MIL/uL (4.0-5.2); WHITE BLOOD COUNT (AUTO) 6.7 K/uL (4.3-11.0)
[2022-11-08 04:48] LABS: CALCIUM, SERUM 9.2 mg/dL (8.5-10.1); CREATININE 4.8 mg/dL (0.6-1.3); MAGNESIUM 2.3 mg/dL (1.8-2.4); PHOSPHORUS 4.8 mg/dL (2.5-4.9); POTASSIUM 3.5 mmol/L (3.5-5.1)
[2022-11-08] MEDS: PRECEDEX 400 MCG/100 ML BOTTLE 100 ML IV PRN ×2 (05:09→22:50)
--- NOTE | 2022-11-08 07:38 | NUR ---
TRACTOR SWEEPER OPERATOR NOTE Patient's GCS E1VTM1, bilateral pupils 3mm reacted very slugguishly to light.Sedated by precedex 0.4. residential monitor showed SR HR 90/min. SBP >90mmHg without vasopressor use. SpO2 100% with FiO2 30%. Left upper arm mid-line is dry and intact, patent upon NS flush. 1-2mL undigested milk aspirated from NGT, confirmed placement by auscultation. Oral care and repositioning was done. Keep observation and care.
[2022-11-08 07:59] LABS: ABG OXYGEN SATURATION 97.6 % (92.0-98.5); ABG PCO2 35.1 mmHg (35.0-45.0); ABG PH 7.447 (7.350-7.450); ABG PO2 98.3 mmHg (75.0-100.0); AaDO2 74.4 mmHg; COHb 0.9 % (0.5-1.5); MetHb 0.2 % (0.0-1.5); O2Hb 96.5 % (94.0-97.0); PEEP,BG 5 cm H2O; SITE, ABG Right Radial; VT, ABG 500 mL
[2022-11-08] MEDS: PANTOPRAZOLE 40 MG/PACK PACK PO SCH (08:27)
[2022-11-08] MEDS: LACOSAMIDE 200 MG in IV NS 0.9% 100 ML IV SCH (09:23)
[2022-11-08] MEDS: NEPRO 1,000 ML BOTTLE GT PRN (12:52)
[2022-11-08 17:30] LABS: ABG BASE EXCESS -0.6 mmol/L; ABG OXYGEN SATURATION 97.9 % (92.0-98.5); ABG PCO2 38.9 mmHg (35.0-45.0); ABG PH 7.407 (7.350-7.450); ABG PO2 107.1 mmHg (75.0-100.0); AaDO2 61.1 mmHg; COHb 0.8 % (0.5-1.5); MetHb 0.2 % (0.0-1.5); O2Hb 96.9 % (94.0-97.0); SITE, ABG Left Radial; VENT MODE, BG CPAP 5 PSV 12
[2022-11-08] MEDS: VANCOMYCIN POST DIALYSIS 500MG IV PRN ×2 (18:54)
[2022-11-08] MEDS: CEFTRIAXONE 2 G in IV D5W 100 ML IV SCH (20:50)
[2022-11-08] MEDS: LACOSAMIDE ORAL SOLN 50 MG/5 ML UDC GT SCH (21:27)
[2022-11-08] MEDS: ACYCLOVIR IV 500 MG in IV D5W 100 ML IV SCH (21:28)
--- NOTE | 2022-11-08 22:00 | NUR ---
ICU/MEDICINE TEACHER [facility] CALLED GAVE UPDATE ON PT, SAID THERE IS NO BED AVAILABLE. PT NEEDS TO GO TO HIGHER LEVEL OF CARE FOR CONTINUOUS EEG MONITORING.
[2022-11-09] VITALS (29 sets, daily range): BP systolic 90–158; BP diastolic 41–100; TEMP 98.3–99; O2SAT 98–100
[2022-11-09] MEDS: BLOOD SUGAR DIAGNOSTIC 1 EACH STRIP IN SCH ×4 (00:47→18:31)
[2022-11-09] MEDS: INSULIN REGULAR, HUMAN 100 UNIT/ML 3 ML VIAL SQ PRN ×5 (00:48→23:57)
--- NOTE | 2022-11-09 01:30 | NUR ---
ICU/CARE REP PT'S MIDLINE WAS NOT FLUSHING, THE PICC LINE NURSE WAS AVAILABLE TO REPLACE THE LINE. MIDLINE WAS PUT IN TO THE LEFT UPPER ARMS.
[2022-11-09 05:10] LABS: BASOPHILS % (AUTO) 0.3 % (0.0-2.0); EOSINOPHILS % (AUTO) 1.6 % (0.0-6.0); HEMATOCRIT 31 % (33-45); HEMOGLOBIN 9.4 g/dL (11.5-14.8); LYMPHOCYTES # (AUTO) 1.1 K/uL (0.8-4.8); LYMPHOCYTES % (AUTO) 13.4 % (20.0-44.0); MEAN CORPUSCULAR HGB CONC 30 g/dl (31.0-36.0); MEAN CORPUSCULAR VOLUME 85 fL (82-100); MONOCYTES # (AUTO) 0.8 K/uL (0.1-1.30); MONOCYTES % (AUTO) 9.5 % (2.0-12.0); NEUTROPHILS # (AUTO) 6.4 K/uL (1.8-8.9); NEUTROPHILS % (AUTO) 75.2 % (43.0-81.0); PLATELET COUNT (AUTO) 168 K/uL (150-450); RED BLOOD CELL COUNT(AUTO) 3.64 MIL/uL (4.0-5.2); WHITE BLOOD COUNT (AUTO) 8.5 K/uL (4.3-11.0)
[2022-11-09 05:28] LABS: CREATININE 4.6 mg/dL (0.6-1.3); MAGNESIUM 2.4 mg/dL (1.8-2.4); PHOSPHORUS 5.1 mg/dL (2.5-4.9); POTASSIUM 3.7 mmol/L (3.5-5.1)
[2022-11-09] MEDS: NEPRO 1,000 ML BOTTLE GT PRN (05:59)
[2022-11-09] MEDS: PRECEDEX 400 MCG/100 ML BOTTLE 100 ML IV PRN ×2 (06:26→22:34)
[2022-11-09] MEDS ORDERED: IV NS 0.9% 250 ML IV PRN (07:00)
[2022-11-09] MEDS: PANTOPRAZOLE 40 MG/PACK PACK PO SCH (08:19)
[2022-11-09] MEDS: LACOSAMIDE ORAL SOLN 50 MG/5 ML UDC GT SCH ×2 (08:35→21:09)
--- NOTE | 2022-11-09 11:35 | NUR ---
pt placed on t-tube trail as 28% aerosol as ordered. zero resp. distress noted. at this time. ambu-bag at head of bed.
[2022-11-09 13:53] LABS: ABG BASE EXCESS -4.5 mmol/L; ABG OXYGEN SATURATION 94.5 % (92.0-98.5); ABG PCO2 30.8 mmHg (35.0-45.0); ABG PH 7.412 (7.350-7.450); ABG PO2 73.1 mmHg (75.0-100.0); AaDO2 90.2 mmHg; COHb 0.7 % (0.5-1.5); MetHb 0.1 % (0.0-1.5); O2Hb 93.7 % (94.0-97.0); SITE, ABG Left Radial
--- NOTE | 2022-11-09 17:16 | NUR ---
BUTTONHOLE MAKER HAND NOTE Patient was off precedex at 10:00 and switched to T-piece at 11:55. Patient's saturation is >95% all along with RR ~25-28/min. Noted that patient showed some response upon calling her name, but the interaction remains not meaningful. Patient is getting increasingly restless and subsequently has to restart precedex(after EEG was done). Copious amount of secretion from oral cavity, condition suction and cleaning.
[2022-11-09] MEDS ORDERED: QUETIAPINE FUMARATE 25 MG TABLET NG SCH (18:00)
--- NOTE | 2022-11-09 19:30 | NUR ---
SPECIAL DELIVERY CARRIER OPENING NOTES RECEIVED REPORT FROM MORNING RN, PATIENT SEDATED SEDATED. ORALLY INTUBATED W 7.5 ETT SECURED @ 26CM LIP LINE VIA ANCHOR FAST, NEPRO FORMULA RUNNING AT 50ML/HR NO GASTRIC RESIDUAL NOTED. PT IS ON TPIECE WITH BACK UP VENT SETTINGS OF AC 18, VT 500, FIO2 30%, PEEP 5. SX DONE . VENT PLUGGED INTO RED OUTLET, VENT ALARMS ON AND AUDIBLE . AMBU BAG@ BEDSIDE. NO RESPIRATORY DISTRESS NOTED AT THIS TIME. CERTIFIED TRAVEL COUNSELOR SINUS RHYTHM 76. LEFT UPPER ARM MIDLINE PATENT WITH IVF PRECEDEX 0.7 MCG/KG/HR. HOB ELEVATED. ASPIRATION PRECAUTIONS MAINTAINED. BILATERAL HALF SIDE RAILS UP X2. BED IN LOW POSITION, LOCKED, EXIT ALARM ON. CALL LIGHT IN REACH. WILL CLOSELY MONITOR THE PATIENT
--- NOTE | 2022-11-09 19:40 | NUR ---
RN NOTES MECHANICAL OPERATOR MADE AWARE THAT [facility] CALLED THEY HAVE BED AVAILABLE FOR THE PATIENT WE NEED TO PROVIDE AMBULANCE WITH CRITICAL CARE TRANSPORT. PER MECHANICAL OPERATOR ASK ED FOR LIST OF AMBULANCE AND NO AVAILABLE CASE MANAGEMENT AT THIS TIME. CALLED [facility] BUT NO CRITICAL NURSE AVAILABLE. INFORMED NURSE MECHANICAL OPERATOR
--- NOTE | 2022-11-09 20:10 | NUR ---
RT NOTE PT RECEIVED INTUBATED WITH 7.5 ET TUBE @ 25 CM LIP LINE. PT IS ON COOL AEROSOL @ 5 LPM ON 28% FIO2. ET TUBE SECURED VIA ANCHOR FAST. PT HAS PRODUCTIVE COUGH AND THICK YELLOW SECRETIONS NOTED. WATER FULL AT THIS TIME. VENT STANDBY. AMBU BAG @ BEDSIDE. WILL CONTINUE TO MONITOR CLOSELY. NO RESPIRATORY DISTRESS NOTED.
--- NOTE | 2022-11-09 20:30 | NUR ---
RN NOTES RECEIVED A CALL FROM [facility] PATIENT HAS AN AVAILABLE BED. CN AND NURSE CLINICAL TRIAL HEAD MADE AWARE.
[2022-11-09] MEDS: CEFTRIAXONE 2 G in IV D5W 100 ML IV SCH (21:01)
--- NOTE | 2022-11-09 21:45 | NUR ---
RN NOTES CALLED [facility] PATIENT LUGGER TIME IS @ 0200 VIA [facility]. CN AND NURSE AUTOMATIC DEVELOPER IS AWARE. FAMILY (SISTER) IS AWARE. WILL CLOSELY MONITOR THE PATIENT
[2022-11-09] MEDS: ACYCLOVIR IV 500 MG in IV D5W 100 ML IV SCH (22:04)
[2022-11-10] VITALS (8 sets, daily range): BP systolic 118–134; BP diastolic 46–72; TEMP 98.4; O2SAT 97–99
[2022-11-10] MEDS: BLOOD SUGAR DIAGNOSTIC 1 EACH STRIP IN SCH
--- NOTE | 2022-11-10 02:48 | NUR ---
RN NOTES REPORT GIVEN TO TANISHA RN. PATIENT WILL BE PICKED UP BY [facility]. WILL CONTINUE TO MONITOR THE PATIENT
--- NOTE | 2022-11-10 04:10 | NUR ---
RN NOTES REPORT GIVEN TO [facility]. PAPER WORKS GIVEN TO RN. PATIENT REMAINS IN STABLE CONDITION, SAFELY TRANSFER TO [facility] BY 2 EMT. FAMILY ADAM IS AWARE, [facility] INFORMED THAT PATIENT IS PICKED UP BY THE AMBULANCE ON STABLE CONDITION. LEFT AT THE PREMISES @ 0453 AM.
[2022-11-10] MEDS: PRECEDEX 400 MCG/100 ML BOTTLE 100 ML IV PRN (04:14)
== END 2022-11-10 05:27 | disposition short-term general hospital (02) | DRG 130 ==
LOC: ER 21:47 → TELE1 11-01 08:39 → ICU 11-01 12:43
PROVIDERS: ATTEND Student in an Organized Health Care Education/Training Program
PROC: 5A1955Z Respiratory Ventilation, Greater than 96 Consecutive Hours (ICD-10-PCS; principal; 2022-11-01)
PROC: 0BH17EZ Insertion of Endotracheal Airway into Trachea, Via Natural or Artificial Opening (ICD-10-PCS; 2022-11-01)
PROC: 05H633Z Insertion of Infusion Device into Left Subclavian Vein, Percutaneous Approach (ICD-10-PCS; 2022-11-01)
PROC: B547ZZA Ultrasonography of Left Subclavian Vein, Guidance (ICD-10-PCS; 2022-11-01)
PROC: 5A1D70Z Performance of Urinary Filtration, Intermittent, Less than 6 Hours Per Day (ICD-10-PCS; 2022-11-01)
PROC: 05H633Z Insertion of Infusion Device into Left Subclavian Vein, Percutaneous Approach (ICD-10-PCS; 2022-11-09)
PROC: B547ZZA Ultrasonography of Left Subclavian Vein, Guidance (ICD-10-PCS; 2022-11-09)
DX: J96.01 Acute respiratory failure with hypoxia (principal); G93.41 Metabolic encephalopathy; T86.12 Kidney transplant failure; G03.9 Meningitis, unspecified; D69.6 Thrombocytopenia, unspecified; G93.1 Anoxic brain damage, not elsewhere classified; I12.0 Hypertensive chronic kidney disease with stage 5 chronic kidney disease or end stage renal disease; E87.1 Hypo-osmolality and hyponatremia; D63.8 Anemia in other chronic diseases classified elsewhere; N18.6 End stage renal disease; E11.22 Type 2 diabetes mellitus with diabetic chronic kidney disease; R56.9 Unspecified convulsions; Y83.0 Surgical operation with transplant of whole organ as the cause of abnormal reaction of the patient, or of later complication, without mention of misadventure at the time of the procedure; Y92.009 Unspecified place in unspecified non-institutional (private) residence as the place of occurrence of the external cause; E11.42 Type 2 diabetes mellitus with diabetic polyneuropathy; E78.5 Hyperlipidemia, unspecified; I25.10 Atherosclerotic heart disease of native coronary artery without angina pectoris; Z99.2 Dependence on renal dialysis; E66.9 Obesity, unspecified; Z68.27 Body mass index [BMI] 27.0-27.9, adult; E83.89 Other disorders of mineral metabolism; Z20.822 Contact with and (suspected) exposure to COVID-19; Z53.9 Procedure and treatment not carried out, unspecified reason; L89.629 Pressure ulcer of left heel, unspecified stage; L89.619 Pressure ulcer of right heel, unspecified stage; Z89.429 Acquired absence of other toe(s), unspecified side; E11.51 Type 2 diabetes mellitus with diabetic peripheral angiopathy without gangrene; J98.11 Atelectasis
CPT/HCPCS: 31720; 36415; 36600; 62270; 70450-TC; 71045-TC; 80048-TC; 80053-TC; 80061-TC; 80076-TC; 80202-TC; 82140-TC; 82803-TC; 82962-TC; 83735-TC; 84100-TC; 84443-TC; 84484-TC; 85025-TC; 85730-TC; 86706; 87040-TC; 87340; 87806; 90935-TC; 93307-TC; 94002-TC; 94003-TC; 94640-TC; 94664-TC; 94799-TC; 95819-TC; A4223; A6403; C9113; G0378; G0480; J0133; J0330; J0696; J1815; J1953; J2310; J2405; J3370; J3475; J3490; J7030; J7040; J7042; J7050; J7060

== ENCOUNTER 2024-02-20 07:28 | Inpatient (IN) | payer MEDICAID, MEDICARE ==
[~2024-02-20] VITALS: Ht 162.6 cm; Wt 93.0 kg
[~2024-02-20 07:28] MED LIST changes: +ALPR1TAB2 PO; +AMOX1TAB15 PO; +ASPI-1169 PO; +ATOR10TA PO; +BETH10TA4 PO; +BLOO-668 IN; +CHOL200059 PO; +CINA30TA2 PO; +CLOP75TA15 PO; +CYAN-51 PO; +CYCL5TAB PO; +DEXT-164 PO; +DIPH50CA4 PO; +DOCU100C36 PO; +DOXY-226 PO; +FLUTICASONE PROP BNOSTRILS; +FOLI0.8T2 PO; +INSU100I28 SQ; +INSU100V7 SQ; +MIDO10TA PO; +NALO4SPR NAS; +ONDA4TAB5 PO; +OXYC10TA49 PO; +OXYC5TAB3 PO; +PANT40TA2 PO; +POLY17PO4 PO; +PREG50CA PO; +SENN-261 PO; +SEVE800T8 PO; +SITA50TA PO; +ZINC220C6 PO; +ZOLP10TA2 PO
[2024-02-20] MEDS ORDERED: ONDANSETRON HCL/PF 4 MG/2 ML VIAL ONE (07:41)
[2024-02-20] MEDS: ONDANSETRON HCL/PF 4 MG/2 ML VIAL IVP ONE (08:15)
[2024-02-20 08:19] LABS: BASOPHILS # (AUTO) 0.1 K/uL (0.0-0.2); BASOPHILS % (AUTO) 0.8 % (0.0-2.0); EOSINOPHILS # (AUTO) 0.1 K/uL (0.0-0.7); EOSINOPHILS % (AUTO) 0.7 % (0.0-6.0); HEMATOCRIT 30 % (33-45); HEMOGLOBIN 9.2 g/dL (11.5-14.8); LYMPHOCYTES # (AUTO) 0.8 K/uL (0.8-4.8); LYMPHOCYTES % (AUTO) 10.6 % (20.0-44.0); MEAN CORPUSCULAR HEMOGLOBIN 25 PG (26.0-33.0); MEAN CORPUSCULAR HGB CONC 31 g/dl (31.0-36.0); MEAN CORPUSCULAR VOLUME 80 fL (82-100); MONOCYTES # (AUTO) 0.6 K/uL (0.1-1.30); MONOCYTES % (AUTO) 7.9 % (2.0-12.0); NEUTROPHILS # (AUTO) 6.4 K/uL (1.8-8.9); PLATELET COUNT (AUTO) 370 K/uL (150-450); RED BLOOD CELL COUNT(AUTO) 3.71 MIL/uL (4.0-5.2); RED CELL DISTRIBUTION WIDTH 22.5 % (11.5-15.0)
[2024-02-20 08:24] LABS: CALCIUM, SERUM 9.3 mg/dL (8.5-10.1); CREATININE 5.8 mg/dL (0.6-1.3); POTASSIUM 4.4 mmol/L (3.5-5.1)
[2024-02-20 08:31] LABS: BILIRUBIN,DIRECT 0.3 mg/dL (0.0-0.2); TOTAL PROTEIN, SERUM 8.1 g/dL (6.4-8.2)
[2024-02-20] MEDS ORDERED: DEXTROSE 50%-WATER 50 ML DISP.SYRIN IV PRN (09:00)
[2024-02-20] MEDS ORDERED: MAGNESIUM HYDROXIDE 30 ML UDC PO PRN (09:00)
[2024-02-20] MEDS ORDERED: WARFARIN SODIUM 4 MG PO SCH (09:00)
[2024-02-20] MEDS ORDERED: SITAGLIPTIN PHOSPHATE 50 MG TABLET PO SCH (09:00)
[2024-02-20] MEDS ORDERED: hydrALAZINE HCL IV 20 MG VIAL IV PRN (09:00)
[2024-02-20] MEDS ORDERED: ALBUTEROL FS 2.5 MG/0.5 ML VIAL.NEB NEB PRN (09:00)
[2024-02-20] MEDS ORDERED: ALPRAZOLAM 1 MG TABLET PO PRN (09:00)
[2024-02-20] MEDS ORDERED: ONDANSETRON HCL/PF 4 MG/2 ML VIAL IVP PRN (09:00)
[2024-02-20] MEDS ORDERED: diphenhydrAMINE HCL 50 MG CAPSULE PO PRN (09:00)
[2024-02-20] MEDS ORDERED: ACETAMINOPHEN 325 MG TABLET PO PRN (09:00)
[2024-02-20 09:30] LABS: MAGNESIUM 2.7 mg/dL (1.8-2.4); PHOSPHORUS 7.8 mg/dL (2.5-4.9)
[2024-02-20] MEDS: ASPIRIN 81 MG TAB.CHEW PO ONE ×2 (09:30→14:48)
[2024-02-20] MEDS ORDERED: INSU100V7 SQ (09:50)
[2024-02-20] MEDS ORDERED: FAMO-131 PO (09:50)
[2024-02-20 10:06] LABS: INR 3.59 (0.91-1.10)
[2024-02-20 12:30] VITALS: BP 124/60; TEMP 97.5
[2024-02-20] MEDS: BLOOD SUGAR DIAGNOSTIC 1 EACH STRIP VI SCH (12:30)
[2024-02-20] MEDS: BETHANECHOL CHLORIDE (10 MG) 10 MG TABLET PO SCH (12:53)
[2024-02-20] MEDS: ASPIRIN 81 MG TAB.CHEW PO SCH (12:53)
[2024-02-20] MEDS: PANTOPRAZOLE 40 MG TABLET.DR PO SCH (12:54)
[2024-02-20] MEDS: SEVELAMER CARBONATE 800 MG TABLET PO SCH (12:54)
[2024-02-20] MEDS: DOCUSATE SODIUM 100 MG CAPSULE PO SCH (12:54)
[2024-02-20] MEDS: CLOPIDOGREL BISULFATE 75 MG TABLET PO SCH (12:54)
[2024-02-20] MEDS: oxyCODONE HCL SR 10MG TAB.SR.12H PO SCH (12:55)
[2024-02-20] MEDS: CINACALCET HCL 30 MG TABLET PO SCH (13:07)
[2024-02-20] MEDS: HYDROMORPHONE 1 MG/1 ML DISP.SYRIN IV PRN (14:50)
[2024-02-20 16:00] VITALS: BP 111/84; TEMP 98.1; O2SAT 98
[2024-02-20] MEDS: MIDODRINE HCL (5MG) 5 MG TABLET PO SCH (17:00)
[2024-02-20] MEDS: VANCOMYCIN 1.5 GM in IV D5W 500 ML IV ONE (18:27)
[2024-02-20 20:00] VITALS: BP 126/82; TEMP 97.7; O2SAT 98
[2024-02-20] MEDS: AMOX/CLAVULANATE 250 MG TABLET PO SCH (20:18)
[2024-02-20] MEDS ORDERED: AMOX/CLAVULANATE 875 MG TABLET PO SCH (21:00)
[2024-02-20] MEDS: MEROPENEM 500 MG in IV NS 0.9% 50 ML IV SCH (21:27)
[2024-02-20] MEDS: CARISOPRODOL 350 MG TABLET PO SCH (21:27)
[2024-02-20] MEDS: ATORVASTATIN 10 MG TABLET PO SCH (21:28)
[2024-02-20] MEDS: *INSULIN REGULAR(HUMULIN R)HUM 100 UNIT/ML VIAL SQ PRN (21:40)
[2024-02-20] MEDS: INSULIN GLARGINE, 100 UNIT/ML CARTRIDGE SQ SCH (21:51)
[2024-02-21] VITALS: BP 124/56; TEMP 98.1; O2SAT 98
[2024-02-21 04:00] VITALS: BP 129/95; TEMP 98.2; O2SAT 98
[2024-02-21 06:51] LABS: BASOPHILS # (AUTO) 0.1 K/uL (0.0-0.2); BASOPHILS % (AUTO) 1.4 % (0.0-2.0); EOSINOPHILS # (AUTO) 0.2 K/uL (0.0-0.7); EOSINOPHILS % (AUTO) 2.4 % (0.0-6.0); HEMATOCRIT 29 % (33-45); HEMOGLOBIN 9.1 g/dL (11.5-14.8); LYMPHOCYTES # (AUTO) 0.7 K/uL (0.8-4.8); LYMPHOCYTES % (AUTO) 8.7 % (20.0-44.0); MEAN CORPUSCULAR HEMOGLOBIN 25 PG (26.0-33.0); MEAN CORPUSCULAR HGB CONC 31 g/dl (31.0-36.0); MEAN CORPUSCULAR VOLUME 79 fL (82-100); MONOCYTES # (AUTO) 0.8 K/uL (0.1-1.30); MONOCYTES % (AUTO) 10.2 % (2.0-12.0); NEUTROPHILS # (AUTO) 6.4 K/uL (1.8-8.9); NEUTROPHILS % (AUTO) 77.3 % (43.0-81.0); PLATELET COUNT (AUTO) 354 K/uL (150-450); RED BLOOD CELL COUNT(AUTO) 3.65 MIL/uL (4.0-5.2); RED CELL DISTRIBUTION WIDTH 22.1 % (11.5-15.0); WHITE BLOOD COUNT (AUTO) 8.3 K/uL (4.3-11.0)
[2024-02-21 06:54] LABS: PROTHROMBIN TIME 53.8 SECS (9.2-11.1)
[2024-02-21 06:58] LABS: CALCIUM, SERUM 8.9 mg/dL (8.5-10.1); CREATININE 6.5 mg/dL (0.6-1.3); MAGNESIUM 2.9 mg/dL (1.8-2.4); POTASSIUM 4.7 mmol/L (3.5-5.1); TOTAL PROTEIN, SERUM 8.2 g/dL (6.4-8.2)
[2024-02-21 07:11] LABS: INR 5.69 (0.91-1.10)
[2024-02-21 07:47] LABS: PHOSPHORUS 8.9 mg/dL (2.5-4.9)
[2024-02-21 08:00] VITALS: BP 137/76; TEMP 97.7; O2SAT 98
[2024-02-21] MEDS: LINAGLIPTIN 5 MG TABLET PO SCH (09:02)
[2024-02-21] MEDS: PREGABALIN 25 MG CAPSULE PO SCH (09:03)
[2024-02-21] MEDS: WARFARIN SODIUM 2 MG TABLET PO SCH (10:05)
[2024-02-21 12:00] VITALS: BP 114/60; TEMP 97.7; O2SAT 99
[2024-02-21] MEDS: diphenhydrAMINE HCL 50 MG/ML VIAL IV PRN (15:41)
[2024-02-21 16:00] VITALS: BP 111/64; TEMP 97.5; O2SAT 98
[2024-02-21] MEDS: SEVELAMER CARBONATE 800 MG TABLET PO SCH (17:39)
[2024-02-21] MEDS ORDERED: ALBUMIN 5% 12.5 GM in PREMIX 1 EA IV PRN (18:00)
[2024-02-21 20:00] VITALS: BP 121/47; TEMP 98.8; O2SAT 98
[2024-02-22 00:30] VITALS: BP 121/84; TEMP 98.4; O2SAT 98
[2024-02-22 06:15] LABS: PROTHROMBIN TIME 52.4 SECS (9.2-11.1)
[2024-02-22 06:22] LABS: INR 5.53 (0.91-1.10)
[2024-02-22 06:54] LABS: CALCIUM, SERUM 8.4 mg/dL (8.5-10.1); CREATININE 5.6 mg/dL (0.6-1.3); POTASSIUM 4.1 mmol/L (3.5-5.1)
[2024-02-22 08:00] VITALS: BP 124/79; TEMP 98; O2SAT 96
[2024-02-22 12:00] VITALS: BP 144/84; TEMP 97.7; O2SAT 98
[2024-02-22 16:00] VITALS: BP 125/52; TEMP 97.8; O2SAT 98
[2024-02-22 20:00] VITALS: BP 126/57; TEMP 98.1; O2SAT 97
[2024-02-23] VITALS: BP 112/69; TEMP 97.9; O2SAT 97
[2024-02-23 04:00] VITALS: BP 132/71; TEMP 97.8; O2SAT 97
[2024-02-23 07:22] LABS: BASOPHILS # (AUTO) 0.1 K/uL (0.0-0.2); BASOPHILS % (AUTO) 1.2 % (0.0-2.0); EOSINOPHILS # (AUTO) 0.3 K/uL (0.0-0.7); EOSINOPHILS % (AUTO) 4.9 % (0.0-6.0); HEMATOCRIT 28 % (33-45); HEMOGLOBIN 8.7 g/dL (11.5-14.8); LYMPHOCYTES # (AUTO) 1.2 K/uL (0.8-4.8); LYMPHOCYTES % (AUTO) 19.8 % (20.0-44.0); MEAN CORPUSCULAR HEMOGLOBIN 25 PG (26.0-33.0); MEAN CORPUSCULAR HGB CONC 31 g/dl (31.0-36.0); MEAN CORPUSCULAR VOLUME 81 fL (82-100); MONOCYTES % (AUTO) 17.1 % (2.0-12.0); NEUTROPHILS # (AUTO) 3.3 K/uL (1.8-8.9); PLATELET COUNT (AUTO) 335 K/uL (150-450); RED BLOOD CELL COUNT(AUTO) 3.43 MIL/uL (4.0-5.2); WHITE BLOOD COUNT (AUTO) 5.8 K/uL (4.3-11.0)
[2024-02-23 07:40] LABS: CALCIUM, SERUM 8.5 mg/dL (8.5-10.1); CREATININE 7.1 mg/dL (0.6-1.3); MAGNESIUM 2.9 mg/dL (1.8-2.4); PHOSPHORUS 6.9 mg/dL (2.5-4.9); POTASSIUM 4.4 mmol/L (3.5-5.1)
[2024-02-23 07:53] LABS: INR 3.59 (0.91-1.10)
[2024-02-23] MEDS: INSULIN REGULAR, HUMAN 100 UNIT/ML 3 ML VIAL SQ PRN (07:53)
[2024-02-23 08:00] VITALS: BP 130/69; TEMP 98.8; O2SAT 96
[2024-02-23 09:31] LABS: NEUTROPHILS % (MANUAL) 62 (42-76)
[2024-02-23 09:32] LABS: ANISOCYTOSIS 1+; BASOPHILS % (MANUAL) 0 % (0.0-2.0); EOSINOPHILS % (MANUAL) 5 % (0-4); HYPOCHROMASIA 1+; LYMPHOCYTES % (MANUAL) 18 % (16-48); MONOCYTES % (MANUAL) 15 % (0-11.0); PLATELET ESTIMATE ADEQUATE
[2024-02-23 10:32] LABS: IRON, SERUM 18 ug/dl (50-175); TOTAL IRON BINDING CAPACITY 117 ug/dl (250-450)
[2024-02-23 10:46] LABS: FERRITIN 506 ng/mL (8-388)
[2024-02-23] MEDS: LOPERAMIDE HCL (2 MG CAP) 2 MG CAPSULE PO PRN (14:30)
[2024-02-23] MEDS: GLUCERNA SHAKE 237 ML CAN PO SCH (17:30)
[2024-02-23 21:00] VITALS: BP 116/42; TEMP 98.2; O2SAT 100
[2024-02-24 01:10] LABS: HEPATITIS B SURFACE AB Reactive (.)
[2024-02-24] MEDS ORDERED: LOPERAMIDE HCL (2 MG CAP) 2 MG CAPSULE ONE (04:25)
[2024-02-24 05:00] VITALS: BP 121/67; TEMP 97.9; O2SAT 97
[2024-02-24 07:05] LABS: INR 2.83 (0.91-1.10)
[2024-02-24 07:07] LABS: BASOPHILS # (AUTO) 0.1 K/uL (0.0-0.2); BASOPHILS % (AUTO) 0.9 % (0.0-2.0); EOSINOPHILS # (AUTO) 0.3 K/uL (0.0-0.7); EOSINOPHILS % (AUTO) 4.6 % (0.0-6.0); HEMATOCRIT 29 % (33-45); HEMOGLOBIN 9.4 g/dL (11.5-14.8); LYMPHOCYTES # (AUTO) 1.3 K/uL (0.8-4.8); LYMPHOCYTES % (AUTO) 19.3 % (20.0-44.0); MEAN CORPUSCULAR HEMOGLOBIN 25 PG (26.0-33.0); MEAN CORPUSCULAR HGB CONC 32 g/dl (31.0-36.0); MEAN CORPUSCULAR VOLUME 79 fL (82-100); MONOCYTES # (AUTO) 1.2 K/uL (0.1-1.30); MONOCYTES % (AUTO) 18.1 % (2.0-12.0); NEUTROPHILS # (AUTO) 3.7 K/uL (1.8-8.9); NEUTROPHILS % (AUTO) 57.1 % (43.0-81.0); PLATELET COUNT (AUTO) 366 K/uL (150-450); RED BLOOD CELL COUNT(AUTO) 3.72 MIL/uL (4.0-5.2); RED CELL DISTRIBUTION WIDTH 22.1 % (11.5-15.0); WHITE BLOOD COUNT (AUTO) 6.5 K/uL (4.3-11.0)
[2024-02-24 07:18] LABS: CALCIUM, SERUM 8.5 mg/dL (8.5-10.1); CREATININE 5.3 mg/dL (0.6-1.3); POTASSIUM 4.1 mmol/L (3.5-5.1)
[2024-02-24 08:50] LABS: BASOPHILS % (MANUAL) 0 % (0.0-2.0); EOSINOPHILS % (MANUAL) 2 % (0-4); LYMPHOCYTES % (MANUAL) 20 % (16-48); MONOCYTES % (MANUAL) 15 % (0-11.0); NEUTROPHILS % (MANUAL) 63 (42-76)
[2024-02-24 08:51] LABS: ANISOCYTOSIS 1+; PLATELET ESTIMATE Q
[2024-02-24] MEDS ORDERED: DOCU100C36 PO (11:55)
[2024-02-24] MEDS ORDERED: oxyCODONE HCL SR 10MG PO (11:55)
[2024-02-24] MEDS ORDERED: LINA5TAB PO (11:55)
[2024-02-24] MEDS ORDERED: SEVE800T7 PO (11:55)
[2024-02-24] MEDS ORDERED: INSU100I30 SQ (11:55)
[2024-02-24] MEDS ORDERED: [UNRECOGNIZED DRUG - OTHER] PO (11:55)
[2024-02-24] MEDS ORDERED: VANC500F2 IV (11:55)
[2024-02-24] MEDS ORDERED: BETH10TA4 PO (11:55)
[2024-02-24] MEDS ORDERED: PANT40TA49 PO (11:55)
[2024-02-24] MEDS ORDERED: MERO500P IV (11:55)
[2024-02-24] MEDS ORDERED: CARI350T27 PO (11:55)
[2024-02-24] MEDS ORDERED: ALBU2.5V13 NEB (11:55)
[2024-02-24 13:00] VITALS: BP 133/66; TEMP 98.1; O2SAT 97
[2024-02-24] MEDS: HYDROCORTISONE 1% CREAM 28.35 GM TUBE TP SCH (18:01)
[2024-02-24 21:00] VITALS: BP 131/84; TEMP 97.7; O2SAT 100
[2024-02-25] MEDS: diphenhydrAMINE HCL 25 MG CAPSULE PO PRN (04:52)
[2024-02-25 05:00] VITALS: BP 122/75; TEMP 97.2; O2SAT 97
[2024-02-25 06:23] LABS: BASOPHILS % (AUTO) 0.8 % (0.0-2.0); EOSINOPHILS # (AUTO) 0.4 K/uL (0.0-0.7); EOSINOPHILS % (AUTO) 7.1 % (0.0-6.0); HEMATOCRIT 26 % (33-45); LYMPHOCYTES # (AUTO) 1.4 K/uL (0.8-4.8); LYMPHOCYTES % (AUTO) 23.3 % (20.0-44.0); MEAN CORPUSCULAR HEMOGLOBIN 25 PG (26.0-33.0); MEAN CORPUSCULAR HGB CONC 31 g/dl (31.0-36.0); MEAN CORPUSCULAR VOLUME 81 fL (82-100); MONOCYTES # (AUTO) 0.8 K/uL (0.1-1.30); NEUTROPHILS # (AUTO) 3.2 K/uL (1.8-8.9); NEUTROPHILS % (AUTO) 54.8 % (43.0-81.0); PLATELET COUNT (AUTO) 321 K/uL (150-450); RED BLOOD CELL COUNT(AUTO) 3.18 MIL/uL (4.0-5.2); WHITE BLOOD COUNT (AUTO) 5.9 K/uL (4.3-11.0)
[2024-02-25 06:29] LABS: INR 2.68 (0.91-1.10); PROTHROMBIN TIME 26.6 SECS (9.2-11.1)
[2024-02-25 06:48] LABS: CREATININE 4.8 mg/dL (0.6-1.3); POTASSIUM 4.2 mmol/L (3.5-5.1)
[2024-02-25 12:00] VITALS: BP 108/83; TEMP 97.6; O2SAT 97
[2024-02-25 15:00] VITALS: BP 125/84; TEMP 97.6; O2SAT 97
[2024-02-25] MEDS ORDERED: LOPERAMIDE HCL (2 MG CAP) 2 MG CAPSULE ONE (20:29)
[2024-02-25 21:00] VITALS: BP 95/60; TEMP 98.1; O2SAT 98
[2024-02-26] VITALS: BP 104/50; TEMP 97.9; O2SAT 98
[2024-02-26 05:00] VITALS: BP 113/79; TEMP 97.7; O2SAT 100
[2024-02-26 08:00] VITALS: BP 91/53; TEMP 98.1; O2SAT 95
[2024-02-26] MEDS: diphenhydrAMINE HCL 50 MG/ML VIAL IV PRN (09:00)
[2024-02-26] MEDS ORDERED: ACIDOPHILUS/BULGARICUS 1 EACH GRAN.PACK PO SCH (10:30)
[2024-02-26 13:00] VITALS: BP 106/71; TEMP 98; O2SAT 100
[2024-02-26] MEDS: ACIDOPHILUS/BULGARICUS 1 EACH TAB.CHEW PO SCH (13:12)
[2024-02-26] MEDS: MIDODRINE HCL (5MG) 5 MG TABLET PO PRN (13:22)
[2024-02-26] MEDS: ALBUMIN 25% 25 GM in PREMIX 1 EA IV PRN (13:30)
[2024-02-26 15:30] LABS: CREATININE 3.3 mg/dL (0.6-1.3); POTASSIUM 3.5 mmol/L (3.5-5.1)
[2024-02-26] MEDS: VANCOMYCIN POST DIALYSIS 500MG IV PRN (15:44)
[2024-02-26 16:00] VITALS: BP 110/56; TEMP 98.1; O2SAT 100
[2024-02-26 20:01] LABS: BASOPHILS # (AUTO) 0.1 K/uL (0.0-0.2); EOSINOPHILS # (AUTO) 0.5 K/uL (0.0-0.7); EOSINOPHILS % (AUTO) 7.9 % (0.0-6.0); HEMATOCRIT 24 % (33-45); HEMOGLOBIN 7.6 g/dL (11.5-14.8); LYMPHOCYTES # (AUTO) 1.3 K/uL (0.8-4.8); MEAN CORPUSCULAR HEMOGLOBIN 25 PG (26.0-33.0); MEAN CORPUSCULAR HGB CONC 32 g/dl (31.0-36.0); MEAN CORPUSCULAR VOLUME 79 fL (82-100); MONOCYTES # (AUTO) 0.7 K/uL (0.1-1.30); MONOCYTES % (AUTO) 11.3 % (2.0-12.0); NEUTROPHILS # (AUTO) 3.5 K/uL (1.8-8.9); NEUTROPHILS % (AUTO) 57.8 % (43.0-81.0); PLATELET COUNT (AUTO) 332 K/uL (150-450); RED BLOOD CELL COUNT(AUTO) 3.07 MIL/uL (4.0-5.2); RED CELL DISTRIBUTION WIDTH 22.5 % (11.5-15.0)
[2024-02-26 20:15] LABS: INR 2.62 (0.91-1.10); PROTHROMBIN TIME 26.1 SECS (9.2-11.1)
[2024-02-26 21:23] VITALS: BP 99/55; TEMP 98.8; O2SAT 100
[2024-02-27 06:22] VITALS: BP 99/55; TEMP 98.8; O2SAT 100
[2024-02-27 07:36] LABS: INR 1.85 (0.91-1.10); PROTHROMBIN TIME 18.8 SECS (9.2-11.1)
[2024-02-27 07:43] LABS: BASOPHILS % (AUTO) 0.5 % (0.0-2.0); EOSINOPHILS # (AUTO) 0.6 K/uL (0.0-0.7); EOSINOPHILS % (AUTO) 8.2 % (0.0-6.0); HEMATOCRIT 25 % (33-45); HEMOGLOBIN 7.7 g/dL (11.5-14.8); LYMPHOCYTES # (AUTO) 1.7 K/uL (0.8-4.8); LYMPHOCYTES % (AUTO) 23.4 % (20.0-44.0); MEAN CORPUSCULAR HEMOGLOBIN 25 PG (26.0-33.0); MEAN CORPUSCULAR HGB CONC 31 g/dl (31.0-36.0); MEAN CORPUSCULAR VOLUME 79 fL (82-100); MONOCYTES # (AUTO) 0.9 K/uL (0.1-1.30); MONOCYTES % (AUTO) 12.7 % (2.0-12.0); NEUTROPHILS % (AUTO) 55.2 % (43.0-81.0); PLATELET COUNT (AUTO) 350 K/uL (150-450); RED BLOOD CELL COUNT(AUTO) 3.12 MIL/uL (4.0-5.2); RED CELL DISTRIBUTION WIDTH 21.6 % (11.5-15.0); WHITE BLOOD COUNT (AUTO) 7.2 K/uL (4.3-11.0)
[2024-02-27] MEDS ORDERED: EPOETIN ALFA (10,000 UNIT) 10,000 UNIT/ML VIAL SQ SCH (10:30)
[2024-02-27] MEDS ORDERED: oxyCODONE HCL SR 10MG PO (11:02)
[2024-02-27] MEDS ORDERED: ACID1TAB12 PO (11:02)
[2024-02-27] MEDS ORDERED: LOPE-195 PO (11:02)
[2024-02-27] MEDS ORDERED: OXYC10TA49 PO (11:02)
[2024-02-27] MEDS ORDERED: FLUC200T8 PO (12:08)
[2024-02-27 13:00] VITALS: BP 112/57; TEMP 98.2; O2SAT 100
[2024-02-27 20:00] VITALS: BP 131/65; TEMP 98.2; O2SAT 100
[2024-02-28 04:00] VITALS: BP 120/74; TEMP 98.2; O2SAT 100
[2024-02-28 08:00] VITALS: BP 138/55; TEMP 97.4; O2SAT 100
[2024-02-28 16:00] VITALS: BP 116/55; TEMP 97.5; O2SAT 95
[2024-02-28] MEDS: diphenhydrAMINE HCL 50 MG/ML VIAL IV ONE (16:34)
[2024-02-28 17:23] VITALS: BP 72/50
== END 2024-02-28 23:04 | disposition home health service (06) | DRG 344 ==
LOC: ER 07:34 → TELE1 10:34 → MEDSG1 02-23 09:54 → UNDODISIN 02-27 11:22
PROVIDERS: ADMIT Internal Medicine; ATTEND Nurse Practitioner Acute Care
PROC: 5A1D70Z Performance of Urinary Filtration, Intermittent, Less than 6 Hours Per Day (ICD-10-PCS; principal; 2024-02-21)
DX: E11.69 Type 2 diabetes mellitus with other specified complication (principal); M86.8X7 Other osteomyelitis, ankle and foot; I21.A1 Myocardial infarction type 2; T86.12 Kidney transplant failure; Z76.82 Awaiting organ transplant status; I12.0 Hypertensive chronic kidney disease with stage 5 chronic kidney disease or end stage renal disease; D68.9 Coagulation defect, unspecified; D63.1 Anemia in chronic kidney disease; N18.6 End stage renal disease; D50.9 Iron deficiency anemia, unspecified; Y83.0 Surgical operation with transplant of whole organ as the cause of abnormal reaction of the patient, or of later complication, without mention of misadventure at the time of the procedure; E11.22 Type 2 diabetes mellitus with diabetic chronic kidney disease; E11.42 Type 2 diabetes mellitus with diabetic polyneuropathy; E66.01 Morbid (severe) obesity due to excess calories; E78.5 Hyperlipidemia, unspecified; Z79.01 Long term (current) use of anticoagulants; K21.9 Gastro-esophageal reflux disease without esophagitis; Z99.2 Dependence on renal dialysis; Z95.5 Presence of coronary angioplasty implant and graft; Z86.718 Personal history of other venous thrombosis and embolism; Z79.84 Long term (current) use of oral hypoglycemic drugs; Z79.4 Long term (current) use of insulin; R53.1 Weakness; E11.51 Type 2 diabetes mellitus with diabetic peripheral angiopathy without gangrene; Z68.35 Body mass index [BMI] 35.0-35.9, adult; N25.0 Renal osteodystrophy; N25.81 Secondary hyperparathyroidism of renal origin; Z89.422 Acquired absence of other left toe(s); Z89.421 Acquired absence of other right toe(s); L97.419 Non-pressure chronic ulcer of right heel and midfoot with unspecified severity
CPT/HCPCS: 36415; 70450-TC; 71045-TC; 80048-TC; 80053-TC; 80076-TC; 80202-TC; 82728-TC; 82962-TC; 83540-TC; 83605-TC; 83690-TC; 83735-TC; 83880; 84100-TC; 84484-TC; 84702-TC; 85025-TC; 85610-TC; 86706; 87040-TC; 87081-TC; 87340; 90935-TC; 93307-TC; 97112-TC; 97530-TC; A4216; A4223; A6253; A6403; G0378; J1171; J1200; J1815; J2185; J2405; J3370; J3371; J7030; J7060; P9047; Q0163